=== PATIENT | male | born 1940 | race Caucasian/White ===

== ENCOUNTER → 2017-06-08 | Outpatient (CLI) | payer OTHER, MEDICARE ==
[2017-06-08 13:26] LABS: BASO % 1.1 %; BASO ABS # 0.05 K/uL (0-0.2); EOS % 3.1 %; HEMATOCRIT 37.7 % (42-52); IG% 0.2 %; LYMPH % 28.6 %; LYMPH ABS # 1.29 K/uL (1.2-3.4); MEAN CORPUSCULAR HEMOGLOBIN 20.2 pg (25-34); MEAN CORPUSCULAR HGB CONC 32.6 g/dl (32-36); MONO % 8.9 %; NEUT % 58.1 %; PLATELET COUNT 197 K/uL (130-400); RED BLOOD COUNT 6.08 M/uL (4.7-6.1); WHITE BLOOD COUNT 4.51 K/uL (4.8-10.8)
[2017-06-08 13:29] LABS: BLOOD UREA NITROGEN 24 mg/dl (7-18); BUN/CREATININE RATIO 27.8 (10-20); CALCIUM 8.7 mg/dl (8.5-10.1); CARBON DIOXIDE 31 mmol/L (21-32); CHLORIDE 104 mmol/L (98-107); CREATININE 0.85 mg/dl (0.60-1.40); GLUCOSE 98 mg/dl (70-99); POTASSIUM 4.2 mmol/L (3.5-5.1); SODIUM 139 mmol/L (136-145)
[2017-06-08 13:40] LABS: ALB/GLOB RATIO 1.1 (0.9-2); ALKALINE PHOSPHATASE 51 U/L (45-117); ALT/SGPT 43 U/L (12-78); AST/SGOT 24 U/L (15-37); CHOLESTEROL 132 mg/dl (0-200); CHOLESTEROL/HDL RATIO 1.8; HDL CHOLESTEROL 72 mg/dl; LDL CHOLESTEROL CALCULATED 50 mg/dl; THYROID STIMULATING HORMONE 0.951 uIu/ml (0.300-4.500); TRIGLYCERIDES 48 mg/dl (0-150); VERY LOW DENSITY LIPOPROT CALC 10 mg/dl
[2017-06-08 13:59] LABS: ANISOCYTOSIS PRESENT; COMPLETE YES; MICROCYTOSIS PRESENT; OVALOCYTES 1+; SCHISTOCYTES 1+; TOXIC GRANULATION 1+
== END | disposition home or self-care (01) ==
LOC: C.LABBC 09:17
PROVIDERS: ATTEND Internal Medicine
DX: Q28.2 Arteriovenous malformation of cerebral vessels (principal); I10 Essential (primary) hypertension; R40.0 Somnolence; N40.1 Benign prostatic hyperplasia with lower urinary tract symptoms; E78.5 Hyperlipidemia, unspecified; G60.9 Hereditary and idiopathic neuropathy, unspecified

== ENCOUNTER → 2017-06-12 | Outpatient (CLI) | payer OTHER, MEDICARE | END | disposition home or self-care (01) | LOC: C.RDSM 07:33 | PROVIDERS: ATTEND Orthopaedic Surgery | DX: M25.561 Pain in right knee (principal) ==

== ENCOUNTER 2017-07-27 10:35 | Inpatient (IN) | payer OTHER, MEDICARE ==
[2017-07-12 14:44] VITALS: BMI 31.0
--- NOTE | 2017-07-12 15:22 | PAT Medication Instructions ---
Service Date Jul 12, 2017. Current Home Medication List Aspirin (Aspirin Ec), 81 MG PO HS Atorvastatin (Lipitor), 10 MG PO HS Ciclopirox Olamine (Ciclopirox Olamine), 1 APPLN TOP UD PRN for FOOT FUNGUS Clobetasol Propionate (Clobetasol Propionate Cream 0.05%), 1 APPLN EXT UD PRN for SKIN RASHES Desipramine HCl (Desipramine HCl), 1 TAB PO QAM Gabapentin (Neurontin), 600 MG PO TID Lisinopril (Lisinopril), 1 TAB PO HS Magnesium Oxide (Magnesium), 1 CAP PO HS Methylphenidate (Ritalin), 2.5 MG PO BID Tamsulosin HCl (Tamsulosin HCl), 1 CAP PO QAM [Deglycycrrhizinated], Unknown Dose for GERD Medication Instructions For Your Scheduled Surgery - Hold the following medications 24 hours prior to surgery: Lisinopril (Lisinopril), 1 TAB PO HS Ciclopirox Olamine (Ciclopirox Olamine), 1 APPLN TOP UD PRN for FOOT FUNGUS Clobetasol Propionate (Clobetasol Propionate Cream 0.05%), 1 APPLN EXT UD PRN for SKIN RASHES - Hold the following medications the morning of surgery: Methylphenidate (Ritalin), 2.5 MG PO BID Tamsulosin HCl (Tamsulosin HCl), 1 CAP PO QAM [Deglycycrrhizinated], Unknown Dose for GERD - Take the following medications the morning of surgery with a sip of water: Gabapentin (Neurontin), 600 MG PO TID Desipramine HCl (Desipramine HCl), 1 TAB PO QAM - Take the following medications as scheduled the night before surgery: Methylphenidate (Ritalin), 2.5 MG PO BID Gabapentin (Neurontin), 600 MG PO TID Aspirin (Aspirin Ec), 81 MG PO HS Atorvastatin (Lipitor), 10 MG PO HS Magnesium Oxide (Magnesium), 1 CAP PO HS If you have any questions please call us at [phone] or [phone] or [phone]
--- NOTE | 2017-07-12 16:00 | DIAGNOSTIC IMAGING REPORT ---
CHEST 2 VIEWS ROUTINE CLINICAL HISTORY: PAT preoperative evaluation COMPARISON STUDY: No previous studies for comparison. FINDINGS: The bones soft tissues and hemidiaphragms are normal. The cardiomediastinal silhouette is normal. The lungs are clear. The pulmonary vasculature is normal. IMPRESSION: Negative chest. The above report was generated using voice recognition software. It may contain grammatical, syntax or spelling errors. Electronically signed by: Sebastian Hunt M.D. 07/12/2017 3:58 PM Dictated Date/Time: 07/12/2017 3:58 PM
[2017-07-12 16:10] LABS: BASO % 0.7 %; BASO ABS # 0.05 K/uL (0-0.2); EOS % 1.6 %; EOS ABS # 0.11 K/uL (0-0.5); HEMATOCRIT 36.3 % (42-52); HEMOGLOBIN 11.7 g/dL (14.0-18.0); IG# 0.01 K/uL (0.00-0.02); MEAN CELL VOLUME 62.2 fL (80-100); MEAN CORPUSCULAR HGB CONC 32.2 g/dl (32-36); MONO % 8.2 %; MONO ABS # 0.55 K/uL (0.11-0.59); NEUT % 65.4 %; NEUT ABS # 4.35 K/uL (1.4-6.5); PLATELET COUNT 177 K/uL (130-400); RED CELL DISTRIBUTION WIDTH CV 16.6 % (11.5-14.5); RED CELL DISTRIBUTION WIDTH SD 36.6 fL (36.4-46.3); WHITE BLOOD COUNT 6.67 K/uL (4.8-10.8)
[2017-07-12 16:40] LABS: PTT PATIENT 27.1 SECONDS (21.0-31.0)
--- NOTE | 2017-07-21 11:18 | HISTORY & PHYSICAL EXAMINATION ---
DATE OF ADMISSION: 07/27/2017 CHIEF COMPLAINT: Right knee pain. HISTORY OF PRESENT ILLNESS: A 76-year-old gentleman from [facility], who recently moved to this area about 2 years ago from [place], who presents for a surgical treatment of his right knee. He has got a long history of right knee pain and discomfort dating back to a high school injury. Never had any surgery. He has been through extensive conservative care, trying to avoid knee replacement surgeries. He has had multiple injections of both steroids and viscosupplementation, which have become less successful over time. He has tried acupuncture treatment and chiropractic treatments without much relief. He has been doing therapy as well. He has gotten several other opinions and now presents for a surgical treatment of his knee. It is global pain. It is increased with weightbearing. It is affecting his lifestyle. PAST MEDICAL HISTORY: Significant for: 1. Cerebral aneurysm, embolized. 2. Thalassemia minor. 3. Arthritis. 4. Peripheral autonomic neuropathy. PAST SURGICAL HISTORY: Includes: 1. Eye surgery. 2. Appendectomy. 3. Cerebral embolizations. 4. Rotator cuff repair. 5. Melanoma. ALLERGIES: IBUPROFEN. CURRENT MEDICATIONS: Include: 1. Unspecified med 25 mg a day. 2. Gabapentin 600 mg 3 times a day. 3. Methylphenidate 2.5 mg at breakfast and 2.5 mg at night. 4. Hydrochlorothiazide 12.5 mg a day. 5. Lisinopril 10 mg a day. 6. Atorvastatin 10 mg a day. 7. Tamsulosin 0.4 mg a day. 8. Clobetasol cream. 9. Ciclopirox cream. 10. Curcumin. 11. Potassium. 12. Magnesium. 13. Aspirin 81 mg. 14. Deglycyrrhizinated licorice 400 mg before meals. SOCIAL HISTORY: This is a 76-year-old male. He recently moved here from [place] about 2 years ago. He is . Two children. Does not drink. FAMILY HISTORY: Significant for heart disease. REVIEW OF SYSTEMS: Significant for history of aneurysm in the past. He does take aspirin without difficulties. Denies any chest pain, no shortness breath. No history of DVT or PE. No known bleeding problems. PHYSICAL EXAMINATION: GENERAL: Physical examination reveals a healthy, pleasant, middle-aged male. He looks to be in good health. HEENT: Benign. NECK: Supple. No lymphadenopathy. LUNGS: Clear to auscultation. HEART: Regular rate and rhythm. ABDOMEN: Soft, nontender and nondistended. EXTREMITIES: Grossly neurovascularly intact except as follows. Examination of the right knee reveals the patient walks with a slight bit of a limp. He has got a valgus alignment to his knee. When he weight bears, his knee goes into further valgus. His range of motion is about 5 degrees short of full extension and 120 degrees of flexion. There is no instability. Small knee effusion. X-RAYS: X-rays of the right knee reveal advanced lateral compartment DJD. He has got complete loss of his lateral joint space. He has got subchondral sclerosis. The patella was well centered within the trochlea. ASSESSMENT: A 76-year-old male with advanced right knee degenerative joint disease relating to a high school injury years ago. He has failed all conservative treatment and would like to his right knee replaced. PLAN: We will take him to the operating room and do a right total knee replacement. The risks and benefits of this procedure were explained to the patient including but not limited to DVT, PE, , infection, neurological injury, vascular injury, bleeding problems, pain, limited range of motion, stiffness, failure to relieve his symptoms, incomplete relief of symptoms, need for further surgery in the future, fracture, leg length inequality, nerve palsy, etc. The patient understands and desires to proceed. Informed consent was obtained. He does have the history of aneurysm in the past, but does take aspirin. We will use aspirin for DVT prophylaxis, probably 81 mg 3 times a day. We did talk to him about holding his lisinopril in the morning of surgery. Apparently, he has some degree of ALLERGIC REACTION TO NICKEL. We will use the Licona [employer] Nephew zirconium knee to avoid any potential allergy issues. He should be able to be discharged home using [facility] home health program. XIN
[~2017-07-27] VITALS: Ht 170.2 cm; Wt 90.3 kg
[2017-07-27] VITALS (9 sets, daily range): BP systolic 89–149; BP diastolic 46–76; PULSE 60–84; TEMP 36.4–36.7; O2SAT 93–98; Ht 170.2 cm; Wt 90.3 kg
[~2017-07-27 10:35] MED LIST: ACETAMINOPHEN 500 MG TAB PO SCH; ASPI81TA28 PO; ATOR10TA82 PO; BUPIVACAINE 0.25% 30 ML VIAL ONE; BUPIVACAINE 0.5 % 5 MG/1 ML PF 10ML VIAL ONE; CEFAZOLIN 2000MG IV PUSH 10 ML IV SCH; CLBCRM30 EXT; DSP25 PO; FAMOTIDINE 20 MG TAB PO SCH; FLM4 PO; GABA-113 PO; GABAPENTIN 300 MG CAP PO SCH; LACTATED RINGER'S 1000ML 1,000 ML IV SCH; LACTATED RINGER'S 1000ML 500 ML IV SCH; LISI-461 PO; MAGN1CAP4 PO; METH5TAB4 PO; METOCLOPRAMIDE HCL 10 MG TAB PO SCH; TRANEXAMIC ACID INJ 1,000 MG in SYRINGE 0 ML IV SCH; [UNRECOGNIZED DRUG - CODE] TOP; [UNRECOGNIZED DRUG - OTHER]
--- NOTE | 2017-07-27 11:30 | History & Physical Bridge Note ---
H&P Re-Evaluation Bridge Note: I have examined the patient, reviewed the History & Physical and in the interval since the performance of the History & Physical I have noted the following changes of clinical significance: No changes noted
[2017-07-27] MEDS ORDERED: LIDOCAINE HCL 2% 2 ML VIAL (20MG/ML) ONE (12:09)
[2017-07-27] MEDS ORDERED: PROPOFOL IV EMULSION 10 MG/ML 20 ML VIAL IV ONE (12:09)
[2017-07-27] MEDS ORDERED: MIDAZOLAM HCL 1 MG/ML 2ML VIAL ONE (12:10)
[2017-07-27] MEDS ORDERED: FENTANYL CITRATE INJ 50 MCG/1 ML 2 ML VIAL ONE (12:10)
[2017-07-27] MEDS ORDERED: BUPIVACAINE/EPINEPHRINE 0.25% 1:200,000 30 ML VIAL ONE (13:15)
[2017-07-27] MEDS ORDERED: BUPIVACAINE LIPOSOME 1/3% 266 MG/20 ML VIAL INFIL ONE (13:15)
[2017-07-27] MEDS ORDERED: SODIUM CHLORIDE 0.9% PF 50 ML VIAL ONE (13:15)
[2017-07-27] MEDS ORDERED: BACITRACIN 50000 UNIT VIAL ONE (13:15)
[2017-07-27] MEDS ORDERED: ONDANSETRON INJ 2 MG/ML 2 ML VIAL ONE (13:36)
[2017-07-27] MEDS ORDERED: ATROPINE SULFATE 0.1 MG/ML 5ML SYR IV PRN (13:45)
[2017-07-27] MEDS ORDERED: EpHEDrine SULFATE INJ 50 MG/ML AMP IV PRN (13:45)
[2017-07-27] MEDS ORDERED: EpHEDrine SULFATE INJ 50 MG/ML AMP ONE (13:52)
[2017-07-27] MEDS ORDERED: PHENYLEPHRINE HCL INJ 10 MG/ML VIAL ONE (14:06)
[2017-07-27] MEDS: BUPIVACAINE LIPOSOME 266 MG, BUPIVACAINE/EPINEPHRINE INJ 50 ML, SODIUM CHLORIDE 0.9% PF... INFIL SCH ×6 (14:35→15:17)
--- NOTE | 2017-07-27 15:25 | [facility] Post Operative Brief Note ---
Immediate Operative Summary Operative Date Jul 27, 2017. Pre-Operative Diagnosis Right Knee Degenerative Joint Disease Post-Operative Diagnosis Same as preop Procedure(s) Performed Right Total Knee Arthroplasty Surgeon Dr. Denis Subacute Nurse Surgeon(s) William Bee PA-C Estimated Blood Loss 50CC Findings Consistent with Post-Op Diagnosis Fluids (cc crystalloids) 1200 cc Specimens A. Right Knee Bone and Tissue Drains None Anesthesia Type MAC Spinal Regional Complication(s) none Disposition Accompanied Pt To Recover: no Disposition: Recovery Room / PACU
[2017-07-27] MEDS ORDERED: ONDANSETRON INJ 2 MG/ML 2 ML VIAL IV PRN (15:45)
[2017-07-27] MEDS ORDERED: MAGNESIUM HYDROXIDE SUSP 30 ML UDC PO PRN (15:45)
[2017-07-27] MEDS ORDERED: BISACODYL 10 MG SUPP PR PRN (15:45)
[2017-07-27] MEDS ORDERED: METOCLOPRAMIDE HCL INJ 5 MG/ML 2 ML VIAL IV PRN (15:45)
[2017-07-27] MEDS ORDERED: ALUMINUM/MAGNESIUM/SIMETH (MAALOX MAX) 30 ML UDC PO PRN (15:45)
[2017-07-27] MEDS ORDERED: SILVER SULFADIAZINE 1% CR 50 GM JAR EXT PRN (15:45)
[2017-07-27] MEDS ORDERED: ZOLPIDEM TARTRATE 5 MG TAB PO PRN (15:45)
[2017-07-27] MEDS ORDERED: TAMSULOSIN HCL 0.4 MG CAP PO PRN (15:45)
--- NOTE | 2017-07-27 15:58 | Anesthesiology Progress Note ---
Anesthesia Post Op Note Date & Time Jul 27, 2017 at 15:58 Vital Signs Pain Intensity: 0 Vital Signs Past 12 Hours Date Time Temp Pulse Resp B/P (MAP) Pulse Ox O2 Delivery O2 Flow Rate FiO2 07/27/17 15:50 84 18 106/53 94 Nasal Cannula 2 07/27/17 15:40 80 18 113/54 94 Nasal Cannula 2 07/27/17 15:30 36.7 87 12 102/53 96 Nasal Cannula 2 07/27/17 10:59 36.5 78 16 149/70 98 Room Air Notes Mental Status: alert / awake / arousable, participated in evaluation Pt Amnestic to Procedure: Yes Nausea / Vomiting: adequately controlled Pain: adequately controlled Airway Patency, RR, SpO2: stable & adequate BP & HR: stable & adequate Hydration State: stable & adequate Anesthetic Complications: no major complications apparent
--- NOTE | 2017-07-27 16:02 | DIAGNOSTIC IMAGING REPORT ---
R KNEE 1 OR 2 VIEWS ROUTINE CLINICAL HISTORY: Postoperative evaluation. COMPARISON: Right knee radiographs July 18 2017. FINDINGS: Alignment of the total right knee arthroplasty is anatomic. There is no fracture or unexpected radiopaque foreign body. Skin ronni are present. IMPRESSION: Expected findings following total right knee arthroplasty. Electronically signed by: Jt Duckworth M.D. 07/27/2017 4:01 PM Dictated Date/Time: 07/27/2017 4:00 PM
[2017-07-27] MEDS: TRAMADOL HCL 50 MG TAB PO PRN ×3 (17:52→23:23)
[2017-07-27] MEDS: D5W AND 1/2NSS + 20MEQ KCL 1,000 ML IV SCH (17:54)
[2017-07-27] MEDS: FERROUS GLUCONATE 324 MG TAB PO SCH (17:54)
[2017-07-27] MEDS: KETOROLAC TROMETHAMINE 15 MG/ML VIAL IV. SCH ×2 (17:54→23:23)
[2017-07-27] MEDS: HYDROmorphone INJ 0.5 MG/0.5 ML SYR IV PRN ×2 (20:06→22:14)
[2017-07-27] MEDS ORDERED: MAGNESIUM OXIDE 400 MG TAB PO SCH (21:00)
[2017-07-27] MEDS: METHYLPHENIDATE HCL 5 MG TAB PO SCH (21:00)
[2017-07-27] MEDS: CEFAZOLIN IV 2,000 MG in SYRINGE 5 ML IV SCH (21:41)
[2017-07-27] MEDS: DOCUSATE SODIUM 100 MG CAP PO SCH (21:41)
[2017-07-27] MEDS: ASPIRIN 325 MG ECTAB PO SCH (21:41)
[2017-07-27] MEDS: ATORVASTATIN 10 MG TAB PO SCH (21:43)
[2017-07-27] MEDS: MAGNESIUM OXIDE 400 MG TAB PO SCH (21:44)
[2017-07-27] MEDS: GABAPENTIN 600 MG TAB PO SCH (21:45)
[2017-07-27] MEDS: LISINOPRIL 10 MG TAB PO SCH (21:46)
[2017-07-27] MEDS: SENNA 8.6 MG TAB PO SCH (21:46)
[2017-07-27] MEDS: ACETAMINOPHEN 500 MG TAB PO SCH (21:50)
[2017-07-27] MEDS ORDERED: TRANEXAMIC ACID INJ 1,000 MG in SODIUM CHLORIDE 0.9% 100ML 100 ML IV SCH (22:00)
[2017-07-28] VITALS (7 sets, daily range): BP systolic 80–124; BP diastolic 52–67; PULSE 68–93; TEMP 36.8–37.3; O2SAT 91–97
[2017-07-28] MEDS: D5W AND 1/2NSS + 20MEQ KCL 1,000 ML IV SCH ×2 (01:47→08:59)
[2017-07-28] MEDS: TRAMADOL HCL 50 MG TAB PO PRN ×2 (03:56→08:59)
[2017-07-28] MEDS: CEFAZOLIN IV 2,000 MG in SYRINGE 5 ML IV SCH (05:41)
[2017-07-28] MEDS: ACETAMINOPHEN 500 MG TAB PO SCH ×3 (05:42→20:52)
[2017-07-28] MEDS: KETOROLAC TROMETHAMINE 15 MG/ML VIAL IV. SCH ×4 (05:42→23:41)
[2017-07-28 06:11] LABS: MEAN CORPUSCULAR HGB CONC 31.7 g/dl (32-36)
[2017-07-28 06:21] LABS: HEMATOCRIT 28.4 % (42-52); MEAN CELL VOLUME 62.4 fL (80-100); MEAN CORPUSCULAR HEMOGLOBIN 19.8 pg (25-34); RED CELL DISTRIBUTION WIDTH CV 16.4 % (11.5-14.5); RED CELL DISTRIBUTION WIDTH SD 36.7 fL (36.4-46.3); WHITE BLOOD COUNT 8.15 K/uL (4.8-10.8)
[2017-07-28 06:39] LABS: CALCIUM 7.7 mg/dl (8.5-10.1); CREATININE 0.93 mg/dl (0.60-1.40); POTASSIUM 3.8 mmol/L (3.5-5.1)
[2017-07-28 06:56] LABS: PLATELET COUNT 133 K/uL (130-400)
--- NOTE | 2017-07-28 07:04 | PROGRESS NOTE ---
DATE: 07/28/2017 SUBJECTIVE: A 76-year-old gentleman postop day 1 from right knee replacement. Pretty rough night but feeling better this morning. No chest pain or shortness of breath. Not feeling dizzy or lightheaded. It has mostly just been a pain issue. OBJECTIVE: VITAL SIGNS: Temperature 37.2. Vital signs stable. GENERAL: Reveals a pleasant, middle-aged male. He is sitting up in bed and looks reasonably comfortable this morning. EXTREMITIES: Examination of the right leg reveals the leg to be well aligned. Dressing is clean, dry, and intact. He can dorsiflex and plantarflex his foot appropriately. He is neurologically intact. LABORATORY DATA: Hemoglobin 9.0. Hematocrit 28.4. Electrolytes are pending. ASSESSMENT: A 76-year-old gentleman postop day 1 from right knee replacement, doing pretty well. Does not really do well with pain medicines and will have to adjust these to get optimal program. He seems to be doing okay now. PLAN: 1. DVT prophylaxis including thigh high TEDs, SCDs, and aspirin twice a day. 2. PT, OT. Weightbearing as tolerated. Right total knee protocol. 3. Pain control. We are going to continue Toradol and Tylenol. We will use tramadol but may need to be more aggressive depending on his pain. 4. Disposition: Plan to discharge to home with some home health once adequately recovered.
[2017-07-28] MEDS: DOCUSATE SODIUM 100 MG CAP PO SCH ×2 (08:52→20:49)
[2017-07-28] MEDS: ASPIRIN 325 MG ECTAB PO SCH ×2 (08:52→20:50)
[2017-07-28] MEDS: GABAPENTIN 600 MG TAB PO SCH ×3 (08:52→20:49)
[2017-07-28] MEDS: FERROUS GLUCONATE 324 MG TAB PO SCH ×3 (08:54→18:30)
[2017-07-28] MEDS: DESIPRAMINE HCL 25 MG TAB PO SCH (08:55)
[2017-07-28] MEDS: PANTOprazole SOD 40 MG TAB PO SCH (08:58)
[2017-07-28] MEDS: MULTIVITAMIN TAB PO SCH (08:58)
[2017-07-28] MEDS: TAMSULOSIN HCL 0.4 MG CAP PO SCH (08:58)
[2017-07-28] MEDS: METHYLPHENIDATE HCL 5 MG TAB PO SCH (09:07)
[2017-07-28] MEDS ORDERED: NURSING VERBAL MED ORDER ONE (14:00)
[2017-07-28] MEDS: ATORVASTATIN 10 MG TAB PO SCH (20:50)
[2017-07-28] MEDS: MAGNESIUM OXIDE 400 MG TAB PO SCH (20:50)
[2017-07-28] MEDS: LISINOPRIL 10 MG TAB PO SCH (20:51)
[2017-07-28] MEDS: SENNA 8.6 MG TAB PO SCH (20:51)
[2017-07-28] MEDS ORDERED: ASPEC325 PO (21:49)
[2017-07-28] MEDS ORDERED: ULT50X PO (21:49)
[2017-07-28] MEDS ORDERED: FRRG PO (21:51)
--- NOTE | 2017-07-28 22:40 | Discharge Instructions ---
Discharge Instructions Date of Service Jul 28, 2017. Admission Reason for Admission: Right Knee Degenerative Joint Disease Discharge Discharge Diagnosis / Problem: Right Knee Replacement Discharge Goals Goal(s): Decrease discomfort, Improve function, Increase independence, Improve disease control, Therapeutic intervention Activity Recommendations Activity Limitations: per Instructions/Follow-up section Weightbearing Status: Right weightbearing . Instructions / Follow-Up Instructions / Follow-Up ACTIVITY RECOMMENDATIONS: Physical Therapy: * You will go to physical therapy three times each week for four to six weeks after your surgery in order to regain your knee range of motion and to retrain your knee to work properly. * It is just as important to make sure you are getting your knee perfectly straight as it is to regain your knee bend. * Taking a pain pill an hour before therapy can help you have a more productive and comfortable therapy session. Home Exercise: * You were shown a series of exercises (heel props, heel slides, etc.) in the hospital. Do these exercises three to four times each day including the exercises you were shown in physical therapy. Walking: * Get up and walk several times each day. For the first four weeks, try not to stand or walk for more than one hour at a time. If you do stand or walk for more than one hour, you will not hurt anything, but your knee and leg will likely swell. * As you feel comfortable, you may change from the walker or crutches to a cane and then to independent walking. MEDICATIONS: New Medicine: * You will likely be taking one or more of these medications: 1. Tramadol - A quick and shorter-acting pain medication. Take one to two tablets every four to six hours to lessen your pain. 2. Iron Sulfate - Take two times each day for the month after surgery to help you replace the blood lost during surgery. 3. Aspirin - Thins your blood to lessen the chance of forming a blood clot. * The most common side effects of pain medicine and iron are nausea and constipation. If nausea or constipation is too much of a problem or if you have any questions about your new medicines or doses, call [facility] at [phone]. We will try to help you manage these issues. VERY IMPORTANT TO READ AND REVIEW" Pain: * The immediate post-operative period after knee replacement surgery is often quite painful. * You are given a prescription for pain medicine. You should take it, as directed, when you need it, especially before physical therapy and before going to bed. Pain that interferes with sleep is very common and can last several months. * You will likely need pain medicine for the first four to six weeks. It will not stop all of the pain. The pain will lessen and as you feel better, you may change to milder pain medicine such as Tylenol. * The most common side effects of pain medicine are nausea and constipation, so don't take more than you need. SPECIAL CARE INSTRUCTIONS: TEDs/Elastic Stockings: * The white elastic stockings help limit swelling and prevent blood clots from forming in your legs. The more you wear them, the more they work. * Wear them for six weeks after knee replacement surgery and four weeks after partial knee replacement. Prevention of Infection: * Take antibiotics one hour before any dental cleaning, dental work, urological procedure, gastrointestinal procedure or any invasive surgery in order to prevent your new joint from getting infected. * You may get the antibiotics from the doctor performing the procedure or you may call our office at before and we will call in a prescription to the pharmacy of your choice. Things to Watch For: * Drainage from the incision site that occurs more than one week after your surgery. * Severely increased knee/leg pain or swelling. * Increased redness at the incision site. * Fever above 102 degrees Fahrenheit. * Unusual chest pain or shortness of breath. * Unusual pain or burning with urination. Call [facility] at with any of the above problems or if you have any questions about your medicines or recovery. FOLLOW UP VISIT: Make an appointment to see your doctor for approximately two weeks after surgery for a progress check and staple removal by calling the office at . Current Hospital Diet Patient's current hospital diet: Regular Diet Discharge Diet Recommended Diet: Regular Diet Procedures Procedures Performed: Right Total Knee Arthroplasty Pending Studies Studies pending at discharge: no Laboratory Results Lipid Panel Test 06/08/17 09:21 Range/Units Triglycerides Level 48 0-150 mg/dl Cholesterol Level 132 0-200 mg/dl HDL Cholesterol 72 mg/dl Cholesterol/HDL Ratio 1.8 LDL Cholesterol, Calculated 50 mg/dl Medical Emergencies . Who to Call and When: Medical Emergencies: If at any time you feel your situation is an emergency, please call 911 immediately. . Non-Emergent Contact Non-Emergency issues call your: Surgeon . "Provider Documentation" section prepared by Asif Denis. . VTE Core Measure Inpt VTE Proph given/why not?: Other Anticoagulation, T.E.D. Stockings, SCD's
[2017-07-29] MEDS: KETOROLAC TROMETHAMINE 15 MG/ML VIAL IV. SCH (05:39)
[2017-07-29] MEDS: ACETAMINOPHEN 500 MG TAB PO SCH (05:40)
[2017-07-29 06:05] VITALS: BP 114/74; PULSE 79; TEMP 36.5; O2SAT 93
[2017-07-29] MEDS: FERROUS GLUCONATE 324 MG TAB PO SCH (07:25)
[2017-07-29] MEDS: ASPIRIN 325 MG ECTAB PO SCH (07:25)
[2017-07-29] MEDS: GABAPENTIN 600 MG TAB PO SCH (07:26)
[2017-07-29] MEDS: TAMSULOSIN HCL 0.4 MG CAP PO SCH (07:26)
[2017-07-29] MEDS: DESIPRAMINE HCL 25 MG TAB PO SCH (07:26)
[2017-07-29] MEDS: DOCUSATE SODIUM 100 MG CAP PO SCH (07:26)
[2017-07-29] MEDS: PANTOprazole SOD 40 MG TAB PO SCH (07:26)
[2017-07-29] MEDS: MULTIVITAMIN TAB PO SCH (07:26)
[2017-07-29] MEDS: TRAMADOL HCL 50 MG TAB PO PRN (07:39)
--- NOTE | 2017-07-29 08:06 | PROGRESS NOTE ---
DATE: 07/29/2017 SUBJECTIVE: This is a 76-year-old gentleman postop day 2 from right knee replacement. He is doing better. Pain is better today. No chest pain or shortness of breath. Not feeling dizzy or lightheaded. OBJECTIVE: VITAL SIGNS: Temperature 36.5. Vital signs stable. GENERAL: Reveals a pleasant, middle-aged male. He is sitting up in bed and eating breakfast. Looks comfortable. EXTREMITIES: Examination of the right leg reveals it to be well aligned. Dressing is clean, dry and intact. His calf is soft and supple. He is neurologically intact. ASSESSMENT: A 76-year-old gentleman postop day 2 from a right knee replacement. He is doing pretty well. Pain is improved today. PLAN: 1. DVT prophylaxis including thigh-high TEDs, SCDs, and aspirin twice a day. 2. PT and OT. Weight bear as tolerated. Right total knee protocol. 3. Pain control. Doing well with current pain regimen. 4. Anemia. Currently, asymptomatic. We will continue on supplementation. 5. Disposition: Plan to discharge to home with some home health later today.
[2017-07-29] MEDS ORDERED: METHYLPHENIDATE HCL 5 MG TAB PO SCH (09:00)
[2017-07-29 09:33] VITALS: BP 114/74; PULSE 79; TEMP 36.5; O2SAT 93
--- NOTE | 2017-07-30 07:58 | OPERATIVE REPORT ---
DATE OF OPERATION: 07/27/2017 SURGEON: Asif Denis MD SENIOR [employer]SE ARCHITECT: CHRISS Beltran PREOPERATIVE DIAGNOSIS: Right knee degenerative joint disease. POSTOPERATIVE DIAGNOSIS: Same. PROCEDURE PERFORMED: Right cemented posterior stabilized total knee arthroplasty. COMPLICATIONS: None. ESTIMATED BLOOD LOSS: 50 mL. FLUID REPLACEMENT: 1200 mL crystalloid fluid replacement. TOURNIQUET TIME: 67 minutes at 300 mmHg. ANESTHESIA: Spinal with adductor canal block. DRAINS: None. SPECIMENS: Left knee sent for pathology. OPERATIVE INDICATIONS: The patient is a 76-year-old gentleman who has had a long history of right knee pain and discomfort. He describes it has just gotten worse over time. He has been through extensive conservative treatment which has not helped recently. X-rays showed advanced lateral compartment DJD with valgus deformity to his knee. He failed conservative treatment and elected to proceed with surgical management. THE PATIENT DOES HAVE A REPORTED NICKEL ALLERGY. Therefore, we used the L[employer]a [employer] Nephew zirconium total knee arthroplasty. OPERATIVE FINDINGS: Operative findings revealed advanced right knee DJD. 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 He had moderate degenerative changes elsewhere. He had a large knee joint effusion and large Barroso cyst posteriorly. OPERATIVE IMPLANTS: Operative implants consisted of: 1. Licona [employer] Nephew Journey II zirconium size 6 posterior stabilized femoral component. 2. Licona [employer] Nephew Journey size 6 tibial tray. 3. An 11 mm posterior stabilized polyethylene insert. 4. A 35 x 9 all poly patella. OPERATIVE PROCEDURE: The patient was taken to the operating room, identified and placed on the operating table in supine position. All contact areas were appropriately padded. IV antibiotics were provided by anesthesia team. A spinal anesthetic and adductor canal block had been provided in the holding area. Hyman catheter was placed in sterile fashion. Right thigh tourniquet was then placed and the lower extremity was then prepped and draped in the usual sterile fashion. The right leg was elevated and exsanguinated with Esmarch and tourniquet was placed at 300 mmHg. An anterior approach to the right knee was then performed through a longitudinal incision, centered over the patella. Sharp dissection was carried out through the subcutaneous tissues down to the level of the extensor mechanism. A medial parapatellar arthrotomy incision was made. Some subperiosteal dissection was carried out medially. The fat pad was resected from beneath the patellar tendon. The lateral patellofemoral ligament was released. The patella was everted and knee was flexed. The osteophytes were taken off the distal femur. The ACL and PCL were then released from the distal femur and the tibia subluxated anteriorly. The external tibial alignment jig was then placed in the anterior face of the tibia and adjusted 8 mm medially. Proximal tibial cut was made to remove about 3-4 mm of bone from the medial side just below the lateral side tibial cut. The tibia was sized to a size 6. I tried to maximize coverage while not allowing overhang posterolaterally. Attention was then drawn to the femur. The distal femur was entered with a sharp drill bit. Intramedullary canal was suctioned. A right 5 degree valgus cutting guide plate was placed. Distal femoral cutting block was pinned in place. Distal femoral cut was made to take an additional 2 mm of bone off the distal femur. The knee was brought out into extension and I equalized the extension gap by releasing the IT band in a piecrust fashion and a little bit of posterolateral capsule, taking great care to protect the peroneal nerve at all times. The knee was then flexed. The femur was then sized to just slightly to size 6, we did downsize this slightly. The AP cutting block was pinned parallel to the epicondylar axis, which was 5 degrees of external rotation. The anterior cut, anterior cord, posterior cut, posterior chamfer, and anterior chamfer cuts were made. The knee was flexed. The remnants of the medial and lateral menisci and the osteophytes were taken off the posterior aspect of the femur. A trial femoral component was placed. The cutting guide for the intercondylar notch was placed and the intercondylar notch area was removed. The trochlea was placed. The tibia was then subluxated anteriorly and the tibial tray was pinned in maximum external rotation. The drill and stem punch were used to create defect in the proximal tibia for the tibial tray. The knee was then trialed and an 11 mm insert fit most appropriately. Attention was then drawn to the patella. The patella was cleaned of all soft tissues. Patellar thickness measured 23 mm and the thickness was cut down to 14, it was sized to a size 35 patella. Lug holes were drilled for a 35 patella. Lateral osteophyte was removed. Patellar button was placed. Knee was taken through range of motion and the patella tracked nicely with no thumbs test. Attention was then drawn toward placement of the permanent components. All trial components were removed. A bone plug was placed in the distal femur to limit blood loss. A double batch of Palacos G cement was mixed. A Licona [employer] Nephew Journey II size 6 posterior stabilized femoral component, size 6 tibial tray, 11 mm posterior stabilized polyethylene insert, and a 35 x 9 all poly patella were then cemented in place. The knee was then brought out into full extension until cement hardened. A final cement check was then performed. Pericapsular tissues were injected with a total of 100 mL of a combination of 20 mL of Exparel, 30 mL of normal saline, and 50 mL of 0.25% Marcaine with epinephrine. The tourniquet was then let down for a tourniquet time of 67 minutes. Hemostasis was assured with use of electrocautery. The wound was once again irrigated. Extensor mechanism was then closed with a combination of #1 PDS suture and #1 Vicryl suture in a [id number] fashion. Extensor mechanism was checked and found to be intact. Subcutaneous tissues were then closed with 2-0 Dexon suture in a buried interrupted fashion. Skin was closed with skin ronni. Leg was then cleaned and dried and a sterile dressing with Xeroform, 4 x 4, sterile cast padding and Dalton bandage were applied. The patient was then transferred to the recovery room in stable condition. The patient tolerated the procedure well and no complications. All needle and sponge counts were correct at the end of the operation. I attest to the content of the Intraoperative Record and any orders documented therein. Any exception s are noted below.
== END 2017-07-29 10:01 | disposition home health service (06) | DRG 470 ==
LOC: C.ACU 10:35 → C.3E 11:00 → ENRESERV 15:54
PROVIDERS: ADMIT Orthopaedic Surgery Sports Medicine; ATTEND Orthopaedic Surgery Sports Medicine
PROC: 0SRC0J9 Replacement of Right Knee Joint with Synthetic Substitute, Cemented, Open Approach (ICD-10-PCS; principal; 2017-07-27 12:55)
DX: M17.11 Unilateral primary osteoarthritis, right knee (principal); G90.9 Disorder of the autonomic nervous system, unspecified; Z79.899 Other long term (current) drug therapy; Z79.82 Long term (current) use of aspirin

== ENCOUNTER 2022-03-21 07:47 | Observation (INO) ==
[2022-03-21] MEDS ORDERED: SODIUM CHLORIDE 0.9% 1000ML 1,000 ML IV SCH (08:30)
[2022-03-21 09:11] LABS: INR 1.3 (0.9-1.1); Prothrombin Time 13.5 Seconds (9.0-12.0)
--- NOTE | 2022-03-21 09:19 | XRay Report ---
XR chest 1V portable CLINICAL HISTORY: hypotension, new onset atrial fibrillation COMPARISON STUDY: Chest radiograph July 12, 2017. FINDINGS: Lung volumes are normal. Lungs are clear. There is no pneumothorax or pleural effusion. Car diac size is at the upper limits of normal. Mediastinal contours are normal. There is no evidence for pulmonary edema. IMPRESSION: No acute cardiopulmonary findings. ACT 112: Negative or not required by law. Electronically signed by: Jt Duckworth M.D. 03/21/2022 9:18 AM
[2022-03-21 09:21] LABS: Albumin Globulin Ratio 1.5 (0.9-2); Albumin Level 2.6 gm/dl (3.4-5.0); BUN Creatinine Ratio 30.5 (10-20); Bilirubin,Total 0.6 mg/dl (0.2-1.0); Calcium 6.3 mg/dl (8.5-10.1); Creatinine Clr Calc Pharmacy 102.3 ml/min; Est GFR (Non-African American) 94.9 ml/min; Globulin 1.7 gm/dl (2.5-4.0); Magnesium 1.4 mg/dl (1.7-2.4); Potassium 2.9 mmol/L (3.5-5.1); Total Protein 4.3 gm/dl (6.0-8.3)
[2022-03-21 09:25] LABS: Troponin I High Sensitivity 16.5 pg/ml (0-20)
[2022-03-21 09:28] LABS: Hemoglobin 9.5 g/dl (14.0-18.0); Mean Corpuscular Hemoglobin 20.3 pg (25.0-34.0); Mean Corpuscular Hgb Conc 30.6 g/dL (32.0-36.0); Mean Corpuscular Volume 66.2 fL (80.0-100.0); Mean Platelet Volume 11.3 fL (9.4-12.4); Platelet Count 103 K/uL (130-400); RDW Standard Deviation 37.2 fL (36.4-46.3); Red Blood Count 4.68 M/uL (4.63-6.08); White Blood Count 3.15 K/ul (4.8-10.8)
[2022-03-21 09:31] LABS: Basophils # (auto) 0.04 K/uL (0-0.2); Basophils % (auto) 1.3 %; Eosinophils # (auto) 0.07 K/uL (0-0.50); Eosinophils % (auto) 2.2 %; Hypochromasia Present; Lymphocytes # (auto) 0.61 K/uL (1.2-3.4); Lymphocytes % (auto) 19.4 %; Microcytosis Present; Monocytes # (auto) 0.23 K/uL (0.24-0.82); Monocytes % (auto) 7.3 %; Neutrophils % (auto) 69.8 %; Polychromasia 1+
[2022-03-21 10:46] LABS: Appearance Urine Clear (Clear); Bacteria Urine Automated Negative (Negative); Bilirubin Urine Negative (Negative); Blood Urine Negative (Negative); Color Urine Yellow; Glucose Urine UA Negative (Negative); Ketones Urine Trace (Negative); Leukocyte Esterase Urine Trace (Negative); Nitrite Urine Negative (Negative); Protein Urine Negative (Negative); RBC Urine Automated 0-4 /hpf (0-4); Specific Gravity Urine 1.011 (1.000-1.030); Urobilinogen Urine Negative (Negative)
[2022-03-21] MEDS ORDERED: MAGNESIUM SULFATE / D5W 1 GM/100 ML BAG IV STA (11:30)
[2022-03-21] MEDS: POTASSIUM CHLORIDE / WTR 10 MEQ/100 ML PLCT IV SCH ×2 (12:52→14:15)
--- NOTE | 2022-03-21 13:42 | Cardiology Consultation ---
Date of Consultation March 21, 2022 Assessment & Plan (1) New onset atrial fibrillation: (2) Nonischemic cardiomyopathy: (3) Non-occlusive coronary artery disease: Plan Patient is an 81-year-old male with prior nonischemic cardiomyopathy with return to normal LV function on guideline directed medical regimen including metoprolol succinate low-dose Entresto and atorvastatin who presents now with sudden onset acute dizziness and presyncope. Symptoms have resolved however he is still remains borderline hypotensive. Newly observed atrial fibrillation found on EKG though with bradycardic to normal ventricular response. No tachyarrhythmia Laboratory studies demonstrate significant metabolic derangement including hypokalemia hypomagnesemia. CBC demonstrates chronic thalassemia changes however with declining hemoglobin and platelet count I discussed atrial fibrillation in detail with patient including management and treatment. No overt tachyarrhythmias but bradycardia arrhythmias are a concern Impression/plan: 1. New onset atrial fibrillation with relatively bradycardic response. Patient was anticipated to have ultimately lapsed into this rhythm given atrial enlargement in past. Question tachybradycardia syndrome. Significant metabolic derangements noted including hypokalemia, hypomagnesemia We will continue low-dose Toprol 12.5 mg every morning as ordered. Maintain telemetry given symptomatic complaints of presyncope Supplement potassium and magnesium with repeat laboratory studies ordered today Optimally would anticoagulate with heparin until significant bradycardia arrhythmias excluded then initiate full anticoagulation long-term with DOAC. We will repeat CBC given declining hemoglobin and platelet count before initiating anticoagulation We will keep n.p.o. after midnight tonight 2. Hypotension and presyncope. Question secondary to arrhythmias versus alternate source. Echocardiogram will be repeated but past studies have demonstrated return to normal LV systolic function. No acute findings suggest ischemia and known mild coronary atherosclerosis by prior cardiac catheterization 3. Decreased hemoglobin and platelet count, repeat CBC to be ordered History of Present Illness Reason for Consultation: New onset atrial fibrillation History of Present Illness Patient is an 81-year-old male with underlying cardiac issues which include but discussion with patient and and review of records 1. Dilated nonischemic cardiomyopathy with moderate left ventricular systolic dysfunction, EF previously 35% with return to normal LV function 2. Mitral regurgitation, nonrheumatic 3. Nonobstructive coronary artery disease via October 2018 diagnostic cardiac catheterization 4. Remote closure of a cerebral AVM circa 1988 to 1990 5. Hypertension 6. Dyslipidemia 7. GERD 8. Gastroparesis 9. Chronic anemia, thalassemia minor 10. Idiopathic peripheral neuropathy 11. Chronic right bundle branch block Patient presents now noting preparing to go for his usual daily 3 mile walk and suddenly developing symptoms of lightheadedness and dizziness. Symptoms initially resolved then returned. Patient checked blood pressure and found it to be significantly low with systolic blood pressures in the 60s. He was not aware of pulse. He remained symptomatic and pale and and he proceeded to the emergency room Currently asymptomatic with systolic blood pressures in the 90s but newly observed atrial fibrillation rates 50s and 60s. He denies any chest pains, tachypalpitations. No recent fevers or infections. No bleeding difficulties. Appetite and weight have been generally stable. Notes no diarrhea or loose stools. No changes in medications recently. Taking medications as prescribed no sleep disturbance. Usual good exercise tolerance with vigorous walk daily Allergies Allergy/AdvReac Type Severity Reaction Status Date / Time ibuprofen Allergy Intermediate RASH Verified 11/01/21 08:21 nickel Allergy Intermediate RASH Verified 11/01/21 08:21 NSAIDS (Non-Steroidal AdvReac Intermediate DISCOMFORT Verified 11/01/21 08:21 Anti-Inflamma IN ESOPHAGUS oxycodone [From OxyContin] AdvReac Mild Anxiety Verified 11/01/21 08:21 prednisone AdvReac Mild AGITATED Verified 11/01/21 08:21 AND UNCOMFORTABLE Home Medications Medication Instructions Recorded Confirmed Type ciclopirox 0.77 % topical cream 1 appln topical DAILY PRN ud 02/27/19 03/21/22 History sacubitril 24 mg-valsartan 26 mg 0.5 tab PO BID 08/26/19 03/21/22 History tablet (Entresto) eplerenone 25 mg tablet 12.5 mg PO 3XWK 09/07/20 03/21/22 History melatonin 5 mg tablet 5 mg PO HS PRN Sleep 09/07/20 03/21/22 History aspirin 81 mg tablet,delayed 81 mg PO QPM 02/22/21 03/21/22 History release (Adult Low Dose Aspirin) gabapentin 300 mg capsule 300 mg PO BID 02/22/21 03/21/22 History magnesium 200 mg tablet 200 mg PO QPM 02/22/21 03/21/22 History metoprolol succinate 25 mg 12.5 mg PO QAM 02/22/21 03/21/22 History tablet,extended release 24 hr B-complex with vitamin C (Super B 1 tab PO DAILY #30 tabs 03/16/21 03/21/22 Rx Complex-Vitamin C tablet) Naturelo Bone Strength 2 tab PO BID 03/16/21 03/21/22 History calcium-mag 2 tab PO QPM #30 tabs 03/16/21 03/21/22 Rx [id number]-boron-silica 200 mg-80 mg-80 unit-0.8 mg tablet tamsulosin 0.4 mg capsule See Rx Instructions .Route 01/16/22 03/21/22 Rx .COMPLEX #90 caps atorvastatin 10 mg tablet 10 mg PO DAILY 03/21/22 03/21/22 History Patient History Medical History Autonomic neuropathy CAD (coronary artery disease) Dilated cardiomyopathy follows with Dr. Blancas/Sebastian Duarte. PAK[place] GERD (gastroesophageal reflux disease) History of IBS History of skin cancer HLD (hyperlipidemia) HTN (hypertension) Hx of arteriovenous malformation (AVM) Peripheral neuropathy TMJ (temporomandibular joint disorder) Surgical History History of appendectomy History of cardiac catheterization History of cataract surgery (03/09/21) History of colonoscopy History of eye surgery History of knee replacement History of repair of rotator cuff History of surgery History of wisdom tooth extraction Family History Father Cardiac disorder Myocardial infarction Heart disease Mother Cardiac disorder Rheumatic fever Hypertension Family/Other Cardiac disorder Other No family history of adverse response to anesthesia Denies family history of Ovarian cancer Prostate cancer Diabetes Breast cancer Lung cancer Colorectal cancer Stroke Social History Smoking Status: Never smoker Second Hand Exposure: No; Hx Alcohol Use: No Hx Substance Use: No Preferred Language: Irish Communication Ability: Effective Visual Impairment: Limited Hearing Ability: Normal Automotive Electrician Required: No Beliefs That Will Affect Care: None marital status: Current Living Situation: Spouse current occupational status: employed How many Children do You have: 2 Feels Safe at Home: Yes Childhood Exposure to Second-Hand Smoke: Yes caffeine: Yes during the past year weight has: decreased > 10 lbs Dental Care, Regularly: Yes Physical Activity Frequency: Daily Seatbelt Use: always Sunscreen Use: No Assistive Devices: Glasses Review of Systems Review of Systems: All systems reviewed & are unremarkable except as noted in HPI & below Physical Exam Constitutional: WD/WN, vitals as above no acute distress Eyes: PERRL, conjunctivae normal, anicteric sclerae ENMT: external ear and nose normal, oropharynx normal Neck: trachea midline, no thyromegaly Respiratory: normal respiratory effort, lungs clear to auscultation Cardiovascular: Rate/Rhythm: + irregularly irregular Heart Sounds: no murmur Vessels: no JVD Extremities: no edema Chest (Breasts): Chest: normal inspection of chest Gastrointestinal (Abdomen): normal bowel sounds, soft, nontender, no hepatosplenomegaly Musculoskeletal: no cyanosis or clubbing, extremities motor strength 5/5 Results & Data ([facility]) Vital Signs (Past 12 Hours) Vital Signs Temp Pulse Pulse Resp BP BP Pulse Ox 03/21/22 13:09 68 18 90/55 L 98 03/21/22 11:21 101/63 03/21/22 11:21 62 16 03/21/22 11:00 52 L 16 03/21/22 10:12 54 L 18 03/21/22 10:12 113/63 03/21/22 10:00 60 20 03/21/22 09:03 81 20 03/21/22 08:00 78 15 99 03/21/22 07:57 77 19 100 03/21/22 11:23 68 16 101/63 94 03/21/22 09:04 89 L 03/21/22 08:24 89 21 98 03/21/22 08:03 83 21 102/60 98 03/21/22 08:03 94 03/21/22 08:03 36.5 C 83 21 102/60 93 O2 Del Method O2 Flow Rate 03/21/22 13:09 Room Air 03/21/22 11:21 03/21/22 11:21 03/21/22 11:00 03/21/22 10:12 03/21/22 10:12 03/21/22 10:00 03/21/22 09:03 03/21/22 08:00 03/21/22 07:57 03/21/22 11:23 03/21/22 09:04 Room Air 0 03/21/22 08:24 03/21/22 08:03 03/21/22 08:03 Room Air 03/21/22 08:03 Room Air Laboratory Results Laboratory Results - last 24 hr 03/21/22 03/21/22 03/21/22 08:38 08:38 08:38 WBC 3.15 L RBC 4.68 Hgb 9.5 L Hct 31.0 L MCV 66.2 L MCH 20.3 L MCHC 30.6 L RDW Std Deviation 37.2 RDW Coeff of Addi 16.0 H Plt Count 103 L MPV 11.3 Immature Gran % (Auto) 0.0 Neut % (Auto) 69.8 Lymph % (Auto) 19.4 [place] % (Auto) 7.3 Eos % (Auto) 2.2 Baso % (Auto) 1.3 Neut # (Auto) 2.20 Lymph # (Auto) 0.61 L [place] # (Auto) 0.23 L Eos # (Auto) 0.07 Baso # (Auto) 0.04 Immature Gran # (Auto) 0.00 Polychromasia 1+ Hypochromasia Present Microcytosis Present PT 13.5 H INR 1.3 H Sodium 145 Potassium 2.9 L Chloride 119 H Carbon Dioxide 22 Anion Gap 4 BUN 18 Creatinine 0.59 L Est Cr Clr Drug Dosing 102.3 Est GFR ( Amer) 110.0 Est GFR (Non-Af Amer) 94.9 BUN/Creatinine Ratio 30.5 H Glucose 100 H Calcium 6.3 L Magnesium 1.4 L Total Bilirubin 0.6 AST 15 ALT 18 Alkaline Phosphatase 29 L Troponin I High Sens 16.5 Total Protein 4.3 L Albumin 2.6 L Globulin 1.7 L Albumin/Globulin Ratio 1.5 TSH Urine Color Urine Appearance Urine pH Ur Specific [place] Urine Protein Urine Glucose (UA) Urine Ketones Urine Blood Urine Nitrite Urine Bilirubin Urine Urobilinogen Ur Leukocyte Esterase Urine WBC (Auto) Urine RBC (Auto) U Hyaline Cast (Auto) U Epithel Cells (Auto) Urine Bacteria (Auto) SARS-CoV-2, RNA, NAAT 03/21/22 03/21/22 03/21/22 08:38 10:13 11:52 WBC RBC Hgb Hct MCV MCH MCHC RDW Std Deviation RDW Coeff of Addi Plt Count MPV Immature Gran % (Auto) Neut % (Auto) Lymph % (Auto) [place] % (Auto) Eos % (Auto) Baso % (Auto) Neut # (Auto) Lymph # (Auto) [place] # (Auto) Eos # (Auto) Baso # (Auto) Immature Gran # (Auto) Polychromasia Hypochromasia Microcytosis PT INR Sodium Potassium Chloride Carbon Dioxide Anion Gap BUN Creatinine Est Cr Clr Drug Dosing Est GFR ( Amer) Est GFR (Non-Af Amer) BUN/Creatinine Ratio Glucose Calcium Magnesium Total Bilirubin AST ALT Alkaline Phosphatase Troponin I High Sens Total Protein Albumin Globulin Albumin/Globulin Ratio TSH 0.871 Urine Color Yellow Urine Appearance Clear Urine pH 8.0 H Ur Specific [place] 1.011 Urine Protein Negative Urine Glucose (UA) Negative Urine Ketones Trace H Urine Blood Negative Urine Nitrite Negative Urine Bilirubin Negative Urine Urobilinogen Negative Ur Leukocyte Esterase Trace H Urine WBC (Auto) 1-5 Urine RBC (Auto) 0-4 U Hyaline Cast (Auto) 1-5 U Epithel Cells (Auto) 10-20 H Urine Bacteria (Auto) Negative SARS-CoV-2, RNA, NAAT NEGATIVE 05/12/2021 TSH normal, magnesium 2.2 Diagnostic Findings Echocardiogram 04/26/2021 Compared to last available study changes are noted as follows: LV systolic function has normalized. Normal LV chamber size with mild concentric LVH. Normal LV systolic function without regional wall motion abnormality. Calculated LV ejection Fraction = 57% (bi-plane method of discs). Grade II diastolic dysfunction. Mild aortic valve sclerosis without stenosis. Mild mitral regurgitation. Mild tricuspid regurgitation. Severe left atrial enlargement
[2022-03-21] MEDS ORDERED: POTASSIUM CHLORIDE CRTAB 20 MEQ TABCR PO STA (13:44)
[2022-03-21] MEDS ORDERED: Heparin IV Adult Wt-Based Low-Dose WITH Bolus Protocol IV SCH (13:51)
[2022-03-21] MEDS ORDERED: HEPARIN SOD (PORCINE) 1000 UNIT/ML IV ONE ×2 (13:59→17:05)
[2022-03-21] MEDS ORDERED: HEPARIN SODIUM/DEXTROSE 25,000 UNITS/500 ML BAG IV SCH ×2 (14:00→17:15)
--- NOTE | 2022-03-21 14:14 | History & Physical Report ---
Date of Service March 21, 2022 Assessment & Plan (1) New onset atrial fibrillation: Plan: Presented with lightheadedness and hypotension in the setting of new onset atrial fibrillation with slow ventricular response He has a history of soft blood pressures and takes Entresto and metoprolol for his nonischemic cardiomyopathy With hypomagnesemia and hypokalemia noted on initial labs He received 1 L of normal saline in the ER as well as IV magnesium and IV potass ium replacement x20 mEq. Interestingly, his magnesium and potassium were completely normal after minimal replacement several hours later Question if this was lab error to begin with. Of note, patient did have his COVID booster on 03/17. Question if this contributed to development of atrial fibrillation in the setting of underlying LAE -Admit on observation to telemetry unit -Continue Toprol-XL 12.5 Mg p.o. once daily with hold parameters for history of cardiomyopathy -Appreciate cardiology consultation -Start heparin drip for now and convert to Eliquis if hemoglobin remains stable due to history of anemia with hemoglobin drop noted initially on CBC -Continue to follow BMP and magnesium and replace as needed (2) Hypotension: Plan: Interestingly developed hypotension in response to slow A. fib Has a history of autonomic neuropathy secondary to issues with large AVM in his past and multiple neurosurgical procedures Okay to continue low-dose Entresto and Toprol-XL as per cardiology with hold parameters Is also on tamsulosin which can contribute to orthostasis (3) Acute hypokalemia: Plan: As above, initially noted to be 2.9 and then corrected to 4.0 after only 20 mEq of KCl IV Question if lab error on initial labs Does take eplerenone 3 times a week Follow BMP and magnesium levels in the morning Replete to 4.0 as needed (4) Hypomagnesemia: Plan: As noted above, magnesium noted to be low at 1.4 on arrival and corrected to 2.2 after only receiving 1 g of IV magnesium-question lab error Follow levels and keep replete to 2.0 or greater in the setting of atrial fibrillation Continue home p.o. magnesium (5) Thalassemia minor: Plan: Baseline hemoglobin usually around 11, microcytic as expected Hemoglobin of 9.5 on arrival and no recent bleeding that he knows of Repeat CBC showed hemoglobin up to 13 and then repeat again to 12-most likely lab error on initial blood work Okay to start heparin drip Follow CBC Check iron studies, B12, folate Initially with thrombocytopenia to 100 which is new for him-check anaplasmosis smear which is negative, check B12 which is normal Repeat CBC a few hours later with normal platelets-was likely a lab error initially. Peripheral smear ordered (6) Nonischemic cardiomyopathy: Plan: Continue Entresto, Toprol-XL Daily weights, low-sodium diet, strict I's and O's EF most recently was normalized Follows with cardiology (7) BPH with obstruction/lower urinary tract symptoms: Plan: No acute issues Continue home tamsulosin (8) Cerebral AVM: Plan: History of such with repair in the past With associated neuropathy Continue gabapentin (9) Chronic GERD: Plan: No acute issues Not taking medication (10) Hyperlipidemia: Plan: Continue atorvastatin, aspirin (11) Non-occlusive coronary artery disease: Plan: No acute issues Continue aspirin, statin, metoprolol Plan DVT prophylaxis-heparin gtt Disposition-bring in on observation to telemetry unit, can likely discharge to home tomorrow if rates controlled and no further hypotension Full code History of Present Illness Chief Complaint: Lightheadedness Primary Care Provider: Bhavesh Gamboa MD This patient is an 81-year-old male with history of prior nonischemic cardiomyopathy with return to normal LV function, hyperlipidemia, nonobstructive CAD, remote closure of cerebral AVM, HTN, GERD, gastroparesis, chronic anemia from thalassemia minor, idiopathic peripheral neuropathy, chronic RBBB, and mitral regurgitation, who presents to the ER with acute onset of lightheadedness after he returned from going for his usual 3 mile daily walk. He took his blood pressure and was found to have a systolic blood pressure in the 60s but did not know what his pulse rate was at that time. He tried eating saltine crackers and then rechecked his blood pressure and it remained low. He remained symptomatic and appeared pale and he called 911. He did not actually pass out but came close. He did take his morning metoprolol and Entresto. He denies ever having chest pain or shortness of breath, no nausea or vomiting, no abdominal pains. In the ER, he was found to have newly diagnosed atrial fibrillation with rates in the 50s to 60s and a systolic blood pressure in the 90s. He was also found to have significant hypokalemia and hypomagnesemia. His hemoglobin was down from his baseline to 9.5 and his platelets were lower than usual at 103. LFTs were normal, blood sugar was normal, troponin normal at 16.5. TSH normal at 0.871. A chest x-ray was negative. ECG showed atrial fibrillation with RBBB and LAFB with rate of 85-the LAFB is new. Urinalysis was without infection and a COVID-19 test was negative. No recent bleeding, fever/chills. In the ER, he was given IV magnesium and IV as well as p.o. potassium and 1 L of normal saline. The ER physician spoke with the patient's personal data analytics architect, Dr. Blancas, who recommended admission for further evaluation. He will be admitted for hypotension, electrolyte abnormalities, and new onset atrial fibrillation. Allergies Allergy/AdvReac Type Severity Reaction Status Date / Time ibuprofen Allergy Intermediate RASH Verified 11/01/21 08:21 nickel Allergy Intermediate RASH Verified 11/01/21 08:21 NSAIDS (Non-Steroidal AdvReac Intermediate DISCOMFORT Verified 11/01/21 08:21 Anti-Inflamma IN ESOPHAGUS oxycodone [From OxyContin] AdvReac Mild Anxiety Verified 11/01/21 08:21 prednisone AdvReac Mild AGITATED Verified 11/01/21 08:21 AND UNCOMFORTABLE Home Medications Medication Instructions Recorded Confirmed Type ciclopirox 0.77 % topical cream 1 appln topical DAILY PRN ud 02/27/19 03/21/22 History sacubitril 24 mg-valsartan 26 mg 0.5 tab PO BID 08/26/19 03/21/22 History tablet (Entresto) eplerenone 25 mg tablet 12.5 mg PO 3XWK 09/07/20 03/21/22 History melatonin 5 mg tablet 5 mg PO HS PRN Sleep 09/07/20 03/21/22 History aspirin 81 mg tablet,delayed 81 mg PO QPM 02/22/21 03/21/22 History release (Adult Low Dose Aspirin) gabapentin 300 mg capsule 300 mg PO BID 02/22/21 03/21/22 History magnesium 200 mg tablet 200 mg PO QPM 02/22/21 03/21/22 History metoprolol succinate 25 mg 12.5 mg PO QAM 02/22/21 03/21/22 History tablet,extended release 24 hr B-complex with vitamin C (Super B 1 tab PO DAILY #30 tabs 09/22/21 09/27/22 Rx Complex-Vitamin C tablet) Naturelo Bone Strength 2 tab PO BID 03/16/21 03/21/22 History calcium-mag 2 tab PO QPM #30 tabs 03/16/21 03/21/22 Rx [id number]-boron-silica 200 mg-80 mg-80 unit-0.8 mg tablet tamsulosin 0.4 mg capsule See Rx Instructions .Route 01/16/22 03/21/22 Rx .COMPLEX #90 caps atorvastatin 10 mg tablet 10 mg PO DAILY 03/21/22 03/21/22 History Past Med/Surg History Medical History (Updated 03/22/22 @ 01:29 by Kiara Pineda MD) Autonomic neuropathy CAD (coronary artery disease) Dilated cardiomyopathy follows with Dr. Blancas/Sebastian Duarte. [place] GERD (gastroesophageal reflux disease) History of IBS History of skin cancer HLD (hyperlipidemia) HTN (hypertension) Hx of arteriovenous malformation (AVM) Peripheral neuropathy TMJ (temporomandibular joint disorder) Surgical History History of appendectomy History of cardiac catheterization 2 years ago while living in [place] - no stents History of cataract surgery (03/09/21) right History of colonoscopy History of eye surgery History of knee replacement Rt History of repair of rotator cuff Rt History of surgery cerebral AVM embolization History of wisdom tooth extraction Family History Father Cardiac disorder Myocardial infarction Heart disease Mother Cardiac disorder Rheumatic fever Hypertension Family/Other Cardiac disorder Other No family history of adverse response to anesthesia Denies family history of Ovarian cancer Prostate cancer Diabetes Breast cancer Lung cancer Colorectal cancer Stroke Social History Smoking Status: Never smoker Second Hand Exposure: No; Hx Alcohol Use: No Hx Substance Use: No Preferred Language: Irish Communication Ability: Effective Visual Impairment: Limited Hearing Ability: Normal Lead Shipper Required: No Beliefs That Will Affect Care: None marital status: Current Living Situation: Spouse current occupational status: employed How many Children do You have: 2 Feels Safe at Home: Yes Childhood Exposure to Second-Hand Smoke: Yes caffeine: Yes during the past year weight has: decreased > 10 lbs Dental Care, Regularly: Yes Physical Activity Frequency: Daily Seatbelt Use: always Sunscreen Use: No Assistive Devices: Glasses Review of Systems Review of Systems: All systems reviewed & are unremarkable except as noted in HPI & below Denies headaches, denies fevers or chills, no cough or cold symptoms, no shortness of breath, no urinary symptoms, no bleeding from anywhere Physical Exam Constitutional: WD/WN, vitals as above Eyes: PERRL, conjunctivae normal, anicteric sclerae ENMT: external ear and nose normal, oropharynx normal Neck: trachea midline, no thyromegaly Respiratory: normal respiratory effort, lungs clear to auscultation Cardiovascular: Rate/Rhythm: + bradycardic and + irregularly irregular Heart Sounds: no murmur Extremities: no edema Chest (Breasts): Chest: normal inspection of chest Gastrointestinal (Abdomen): normal bowel sounds, soft, nontender, no he patosplenomegaly Musculoskeletal: Extremities: extremities normal to inspection; no cyanosis and no clubbing Skin: no rashes, warm and dry Neurologic: moves all extremities and awake; no focal motor deficits Psychiatric: A+Ox3, euthymic affect Lymphatic: no lymphedema Results & Data Results & Data ([facility]) Vital Signs (Past 12 Hours) Vital Signs Temp Pulse Pulse Resp BP BP Pulse Ox 03/21/22 13:09 68 18 90/55 L 98 03/21/22 11:21 101/63 03/21/22 11:21 62 16 03/21/22 11:00 52 L 16 03/21/22 10:12 54 L 18 03/21/22 10:12 113/63 03/21/22 10:00 60 20 03/21/22 09:03 81 20 03/21/22 08:00 78 15 99 03/21/22 07:57 77 19 100 03/21/22 11:23 68 16 101/63 94 03/21/22 09:04 89 L 03/21/22 08:24 89 21 98 03/21/22 08:03 83 21 102/60 98 03/21/22 08:03 94 03/21/22 08:03 36.5 C 83 21 102/60 93 O2 Del Method O2 Flow Rate 03/21/22 13:09 Room Air 03/21/22 11:21 03/21/22 11:21 03/21/22 11:00 03/21/22 10:12 03/21/22 10:12 03/21/22 10:00 03/21/22 09:03 03/21/22 08:00 03/21/22 07:57 03/21/22 11:23 03/21/22 09:04 Room Air 0 03/21/22 08:24 03/21/22 08:03 03/21/22 08:03 Room Air 03/21/22 08:03 Room Air Laboratory Results Labs reviewed Diagnostic Findings Chest X-Ray 03/21/22 08:24 XR chest 1V portable CLINICAL HISTORY: hypotension, new onset atrial fibrillation COMPARISON STUDY: Chest radiograph July 12, 2017. FINDINGS: Lung volumes are normal. Lungs are clear. There is no pneumothorax or pleural effusion. Cardiac size is at the upper limits of normal. Mediastinal contours are normal. There is no evidence for pulmonary edema. IMPRESSION: No acute cardiopulmonary findings. ACT 112: Negative or not required by law. Electronically signed by: Jt Duckworth M.D. 03/21/2022 9:18 AM Code Status & VTE Plan Code Status Full code VTE Prophylaxis Plan VTE Prophylaxis will be ordered: Yes PG Care Time/CCT Total # of Minutes Spent Total Time Spent with Patient: Total time spent is greater than 50% in coordination of care (as documented) at patient's floor/unit and/or counseling patient: Coding Level of Care Code INT OBSERVATION CARE 70M LVL 3 Diagnoses New onset atrial fibrillation I48.91 Hypotension I95.9 Acute hypokalemia E87.6 Hypomagnesemia E83.42 Thalassemia minor D56.3 Nonischemic cardiomyopathy I42.8 BPH with obstruction/lower urinary tract symptoms N40.1; N13.8 Cerebral AVM Q28.2 Chronic GERD K21.9 Hyperlipidemia E78.2 Hyperlipidemia type: mixed hyperlipidemia Non-occlusive coronary artery disease I25.10 (1) Hyperlipidemia Hyperlipidemia type: mixed hyperlipidemia Qualified Code(s): E78.2 - Mixed hyperlipidemia
--- NOTE | 2022-03-21 14:41 | Emergency Department Note ---
Impression & Plan New onset atrial fibrillation, Hypomagnesemia, Acute hypokalemia ED Provider Note INFORMANT: Patient ED PROVIDER(S): Alejandro Hdez MD CHIEF COMPLAINT: Lightheadedness PLAN: Disposition: Admitted Condition: Good Outpatient prescription management: none Referral: None MEDICAL DECISION MAKING: Patient presented because of lightheadedness and he was found to have acute onset of atrial fibrillation. A work-up was initiated. He did respond well to saline to correct the hypotension. Patient had no ischemia noted on ECG. He was indeed in atrial fibrillation. Patient's CBC showed a mild pancytopenia. His potassium was significantly low at 2.9 and magnesium was low at 1.4. Chest x-ray and urinalysis were unremarkable. Patient was given IV magnesium and IV potassium. 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 Blancas. In light of his symptoms and electrolyte disturbance he recommended inpatient treatment. I did discuss this with the patient and family. They were in agreement. Consultation was made with the [facility] service. Patient was evaluated in the ER and admitted for further Triage Nursing notes reviewed and agree them. Vital Signs: reviewed and remarkable for borderline hypotension Differential diagnosis: Cardiac sources, infection, dehydration, metabolic abnormality, hypo/hyperglycemia, electrolyte disturbance, anemia, hypoxia, cardiac sources, intracerebral event, toxicologic, neurologic, as well as other pathologies. Diagnostics interpreted by me: ECG: Twelve-lead ECG reveals atrial fibrillation at 85 bpm. Right bundle branch block and left anterior fascicular block. No ST elevation or depression. No PVCs. Cardiac Monitoring: Cardiac monitoring ordered by me: The patient was placed on continuous cardiac monitoring and observed. It revealed atrial fibrillation at 68 bpm. Imaging studies: Chest x-ray. Findings: A chest x-ray was performed and revealed no pneumothorax, effusion, infiltrate, pulmonary edema, free air under the diaphragm, or wide mediastinum. Impression: No acute disease. HPI: The patient is a 81 year old male who presents to the Emergency Room with complaints of lightheaded and dizziness. This started just prior to arrival and is improved. The patient also notes the following associated symptoms, none. Patient states has been in good health all week. EMS was summoned and the patient was found to be in new onset A. fib. Patient had his blood pressure taken at home and it was 66/44.. The patient has been given normal saline 250 mL bolus for relieving factors. Current pain is rated as 0/10. No recent vomiting or diarrhea. Pt denies LOC, headache, fevers, chills, diaphoresis, visual changes, neck pain, chest pain, breathing difficulties, nausea, vomiting, abdominal pain, back pain, melena, hematochezia, urinary symptoms, numbness, weakness, lymphadenopathy, rash, or other complaints. ROS: See above HPI for pertinent positives & negatives. A total of 10 systems reviewed and were otherwise negative. PAST MEDICAL HISTORY:See Below , nonischemic cardiomyopathy PAST SURGICAL HISTORY:See Below, FAMILY HISTORY:See Below SOCIAL HISTORY:See Below, HOME MEDICATIONS:See Below ALLERGIES:See Below VITALS:See Below PHYSICAL EXAMINATION: GENERAL: Awake, alert, well-appearing, in no distress HENT: Normocephalic, atraumatic. Oropharynx unremarkable. EYES: Normal conjunctiva. Sclera non-icteric. NECK: Inspection normal. Non-tender. Supple. No nuchal rigidity. FROM. No masses. RESPIRATORY: Clear to auscultation. No wheezes. No rales. Normal respiratory effort. CARDIAC: Borderline tachycardic rate. Irregular rhythm. No murmurs. No rubs. Extremities warm and well perfused. Pulses equal. No JVD. GI: Soft, non-distended. No tenderness to palpation. No rebound or guarding. No masses. RECTAL: Deferred. MUSCULOSKELETAL: Atraumatic. Chest examination reveals no tenderness. The back is symmetrical on inspection without obvious abnormality. There is no CVA tenderness to palpation. No joint edema. LOWER EXTREMITIES: Calves are equal size bilaterally and non-tender. No edema. No discoloration. NEURO: Normal sensorium. No sensory or motor deficits noted. SKIN: No rash or jaundice noted. Alejandro Hdez MD Past Med/Surg History Medical History Autonomic neuropathy CAD (coronary artery disease) Dilated cardiomyopathy follows with Dr. Blancas/Sebastian Duarte. PAKanu GERD (gastroesophageal reflux disease) History of IBS History of skin cancer HLD (hyperlipidemia) HTN (hypertension) Hx of arteriovenous malformation (AVM) Peripheral neuropathy TMJ (temporomandibular joint disorder) Surgical History History of appendectomy History of cardiac catheterization History of cataract surgery (03/09/21) History of colonoscopy History of eye surgery History of knee replacement History of repair of rotator cuff History of surgery History of wisdom tooth extraction Family History Father Cardiac disorder Myocardial infarction Heart disease Mother Cardiac disorder Rheumatic fever Hypertension Family/Other Cardiac disorder Other No family history of adverse response to anesthesia Denies family history of Ovarian cancer Prostate cancer Diabetes Breast cancer Lung cancer Colorectal cancer Stroke Social History Smoking Status: Never smoker Second Hand Exposure: No; Hx Alcohol Use: No Hx Substance Use: No Preferred Language: Polish Communication Ability: Effective Visual Impairment: Limited Hearing Ability: Normal Media Supervisor Required: No Beliefs That Will Affect Care: None marital status: Current Living Situation: Spouse current occupational status: employed How many Children do You have: 2 Feels Safe at Home: Yes Childhood Exposure to Second-Hand Smoke: Yes caffeine: Yes during the past year weight has: decreased > 10 lbs Dental Care, Regularly: Yes Physical Activity Frequency: Daily Seatbelt Use: always Sunscreen Use: No Assistive Devices: Glasses Allergies Allergies Allergy/AdvReac Type Severity Reaction Status Date / Time ibuprofen Allergy Intermediate RASH Verified 11/01/21 08:21 nickel Allergy Intermediate RASH Verified 11/01/21 08:21 NSAIDS (Non-Steroidal AdvReac Intermediate DISCOMFORT Verified 11/01/21 08:21 Anti-Inflamma IN ESOPHAGUS oxycodone [From OxyContin] AdvReac Mild Anxiety Verified 11/01/21 08:21 prednisone AdvReac Mild AGITATED Verified 11/01/21 08:21 AND UNCOMFORTABLE Home Meds Home Medications Medication Instructions Recorded Confirmed ciclopirox 0.77 % topical cream 1 appln topical DAILY PRN ud 02/27/19 03/21/22 sacubitril 24 mg-valsartan 26 mg 0.5 tab PO BID 08/26/19 03/21/22 tablet (Entresto) eplerenone 25 mg tablet 12.5 mg PO 3XWK 09/07/20 03/21/22 melatonin 5 mg tablet 5 mg PO HS PRN Sleep 09/07/20 03/21/22 aspirin 81 mg tablet,delayed 81 mg PO QPM 02/22/21 03/21/22 release (Adult Low Dose Aspirin) gabapentin 300 mg capsule 300 mg PO BID 02/22/21 03/21/22 magnesium 200 mg tablet 200 mg PO QPM 02/22/21 03/21/22 metoprolol succinate 25 mg 12.5 mg PO QAM 02/22/21 03/21/22 tablet,extended release 24 hr Naturelo Bone Strength 2 tab PO BID 03/16/21 03/21/22 atorvastatin 10 mg tablet 10 mg PO DAILY 03/21/22 03/21/22 Previous Rx's Medication Instructions Recorded B-complex with vitamin C (Super B 1 tab PO DAILY #30 tabs 03/16/21 Complex-Vitamin C tablet) calcium-mag 2 tab PO QPM #30 tabs 03/16/21 ip-U3-kvvf-boron-silica 200 mg-80 mg-80 unit-0.8 mg tablet tamsulosin 0.4 mg capsule See Rx Instructions .Route 01/16/22 .COMPLEX #90 caps Results & Data (ED) Vital Signs Vital Signs - 24 hr 03/21/22 08:03 03/21/22 08:03 03/21/22 08:03 Temperature 36.5 C Temperature Source Oral Pulse Rate 83 Pulse Rate [Apical] 83 Pulse Rate from SpO2 Sensor Pulse Rhythm Regular Pulse Rhythm [Apical] Pulse Strength Normal Pulse Strength [Apical] Respiratory Rate 21 21 Respiratory Effort / Characteristics Non-Labored Respiratory Depth Normal Respiratory Pattern Regular Blood Pressure 102/60 Blood Pressure [Right Arm] 102/60 Blood Pressure Mean 74 Blood Pressure Mean [Right Arm] 74 Blood Pressure Position [Right Arm] Pulse Oximetry 93 94 98 Oxygen Delivery Method Room Air Room Air Oxygen Flow Rate Sepsis Recent Fever Within 48 Hours No Sepsis New/Unexplained Change in Mental Status N/A Sepsis Action Taken by Nursing No Action Required Oxygen Flow Rate - Titration Pulse Oximetry Post Tiitration 03/21/22 08:24 03/21/22 09:04 03/21/22 11:23 Temperature Temperature Source Pulse Rate 89 Pulse Rate [Apical] 68 Pulse Rate from SpO2 Sensor Pulse Rhythm Pulse Rhythm [Apical] Regular Pulse Strength Pulse Strength [Apical] Normal Respiratory Rate 21 16 Respiratory Effort / Characteristics Respiratory Depth Normal Respiratory Pattern Blood Pressure Blood Pressure [Right Arm] 101/63 Blood Pressure Mean Blood Pressure Mean [Right Arm] 75 Blood Pressure Position [Right Arm] Lying Pulse Oximetry 98 89 L 94 Oxygen Delivery Method Room Air Oxygen Flow Rate 0 Sepsis Recent Fever Within 48 Hours Sepsis New/Unexplained Change in Mental Status Sepsis Action Taken by Nursing Oxygen Flow Rate - Titration 2 Pulse Oximetry Post Tiitration 95 03/21/22 07:57 03/21/22 08:00 03/21/22 09:03 Temperature Temperature Source Pulse Rate 77 78 81 Pulse Rate [Apical] Pulse Rate from SpO2 Sensor 78 73 Pulse Rhythm Pulse Rhythm [Apical] Pulse Strength Pulse Strength [Apical] Respiratory Rate 19 15 20 Respiratory Effort / Characteristics Respiratory Depth Respiratory Pattern Blood Pressure Blood Pressure [Right Arm] Blood Pressure Mean Blood Pressure Mean [Right Arm] Blood Pressure Position [Right Arm] Pulse Oximetry 100 99 Oxygen Delivery Method Oxygen Flow Rate Sepsis Recent Fever Within 48 Hours Sepsis New/Unexplained Change in Mental Status Sepsis Action Taken by Nursing Oxygen Flow Rate - Titration Pulse Oximetry Post Tiitration 03/21/22 10:00 03/21/22 10:12 03/21/22 10:12 Temperature Temperature Source Pulse Rate 60 54 L Pulse Rate [Apical] Pulse Rate from SpO2 Sensor Pulse Rhythm Pulse Rhythm [Apical] Pulse Strength Pulse Strength [Apical] Respiratory Rate 20 18 Respiratory Effort / Characteristics Respiratory Depth Respiratory Pattern Blood Pressure 113/63 Blood Pressure [Right Arm] Blood Pressure Mean 79 Blood Pressure Mean [Right Arm] Blood Pressure Position [Right Arm] Pulse Oximetry Oxygen Delivery Method Oxygen Flow Rate Sepsis Recent Fever Within 48 Hours Sepsis New/Unexplained Change in Mental Status Sepsis Action Taken by Nursing Oxygen Flow Rate - Titration Pulse Oximetry Post Tiitration 03/21/22 11:00 03/21/22 11:21 03/21/22 11:21 Temperature Temperature Source Pulse Rate 52 L 62 Pulse Rate [Apical] Pulse Rate from SpO2 Sensor Pulse Rhythm Pulse Rhythm [Apical] Pulse Strength Pulse Strength [Apical] Respiratory Rate 16 16 Respiratory Effort / Characteristics Respiratory Depth Respiratory Pattern Blood Pressure 101/63 Blood Pressure [Right Arm] Blood Pressure Mean 75 Blood Pressure Mean [Right Arm] Blood Pressure Position [Right Arm] Pulse Oximetry Oxygen Delivery Method Oxygen Flow Rate Sepsis Recent Fever Within 48 Hours Sepsis New/Unexplained Change in Mental Status Sepsis Action Taken by Nursing Oxygen Flow Rate - Titration Pulse Oximetry Post Tiitration 03/21/22 13:09 Temperature Temperature Source Pulse Rate Pulse Rate [Apical] 68 Pulse Rate from SpO2 Sensor Pulse Rhythm Pulse Rhythm [Apical] Pulse Strength Pulse Strength [Apical] Respiratory Rate 18 Respiratory Effort / Characteristics Respiratory Depth Respiratory Pattern Blood Pressure Blood Pressure [Right Arm] 90/55 L Blood Pressure Mean Blood Pressure Mean [Right Arm] 66 Blood Pressure Position [Right Arm] Pulse Oximetry 98 Oxygen Delivery Method Room Air Oxygen Flow Rate Sepsis Recent Fever Within 48 Hours Sepsis New/Unexplained Change in Mental Status Sepsis Action Taken by Nursing Oxygen Flow Rate - Titration Pulse Oximetry Post Tiitration Laboratory Data Result diagrams: 03/21/22 08:38 03/21/22 08:38 Lab Results 03/21/22 03/21/22 03/21/22 Range/Units 08:38 08:38 08:38 WBC 3.15 L (4.8-10.8) K/ul RBC 4.68 (4.63-6.08) M/uL Hgb 9.5 L (14.0-18.0) g/dl Hct 31.0 L (40.1-51.0) % MCV 66.2 L (80.0-100.0) fL MCH 20.3 L (25.0-34.0) pg MCHC 30.6 L (32.0-36.0) g/dL RDW Std Deviation 37.2 (36.4-46.3) fL RDW Coeff of Addi 16.0 H (11.5-14.5) % Plt Count 103 L (130-400) K/uL MPV 11.3 (9.4-12.4) fL Immature Gran % (Auto) 0.0 % Neut % (Auto) 69.8 % Lymph % (Auto) 19.4 % [place] % (Auto) 7.3 % Eos % (Auto) 2.2 % Baso % (Auto) 1.3 % Neut # (Auto) 2.20 (1.4-6.5) K/uL Lymph # (Auto) 0.61 L (1.2-3.4) K/uL [place] # (Auto) 0.23 L (0.24-0.82) K/uL Eos # (Auto) 0.07 (0-0.50) K/uL Baso # (Auto) 0.04 (0-0.2) K/uL Immature Gran # (Auto) 0.00 (0.00-0.02) K/uL Polychromasia 1+ Hypochromasia Present Microcytosis Present PT 13.5 H (9.0-12.0) Seconds INR 1.3 H (0.9-1.1) Sodium 145 (136-145) mmol/L Potassium 2.9 L (3.5-5.1) mmol/L Chloride 119 H (98-107) mmol/L Carbon Dioxide 22 (21-32) mmol/L Anion Gap 4 (3-11) BUN 18 (6-23) mg/dl Creatinine 0.59 L (0.6-1.4) mg/dl Est Cr Clr Drug Dosing 102.3 ml/min Est GFR ( Amer) 110.0 ml/min Est GFR (Non-Af Amer) 94.9 ml/min BUN/Creatinine Ratio 30.5 H (10-20) Glucose 100 H (70-99(Fasting)) mg/dl Calcium 6.3 L (8.5-10.1) mg/dl Magnesium 1.4 L (1.7-2.4) mg/dl Total Bilirubin 0.6 (0.2-1.0) mg/dl AST 15 (13-39) U/L ALT 18 (7-52) U/L Alkaline Phosphatase 29 L (34-104) U/L Troponin I High Sens 16.5 (0-20) pg/ml Total Protein 4.3 L (6.0-8.3) gm/dl Albumin 2.6 L (3.4-5.0) gm/dl Globulin 1.7 L (2.5-4.0) gm/dl Albumin/Globulin Ratio 1.5 (0.9-2) TSH (0.300-4.500) uIu/ml Urine Color Urine Appearance (Clear) Urine pH (4.5-7.5) Ur Specific [place] (1.000-1.030) Urine Protein (Negative) Urine Glucose (UA) (Negative) Urine Ketones (Negative) Urine Blood (Negative) Urine Nitrite (Negative) Urine Bilirubin (Negative) Urine Urobilinogen (Negative) Ur Leukocyte Esterase (Negative) Urine WBC (Auto) (0-5) /hpf Urine RBC (Auto) (0-4) /hpf U Hyaline Cast (Auto) (0-5) /lpf U Epithel Cells (Auto) (0-5) /lpf Urine Bacteria (Auto) (Negative) SARS-CoV-2, RNA, NAAT (NEGATIVE) 03/21/22 03/21/22 03/21/22 Range/Units 08:38 10:13 11:52 WBC (4.8-10.8) K/ul RBC (4.63-6.08) M/uL Hgb (14.0-18.0) g/dl Hct (40.1-51.0) % MCV (80.0-100.0) fL MCH (25.0-34.0) pg MCHC (32.0-36.0) g/dL RDW Std Deviation (36.4-46.3) fL RDW Coeff of Addi (11.5-14.5) % Plt Count (130-400) K/uL MPV (9.4-12.4) fL Immature Gran % (Auto) % Neut % (Auto) % Lymph % (Auto) % [place] % (Auto) % Eos % (Auto) % Baso % (Auto) % Neut # (Auto) (1.4-6.5) K/uL Lymph # (Auto) (1.2-3.4) K/uL [place] # (Auto) (0.24-0.82) K/uL Eos # (Auto) (0-0.50) K/uL Baso # (Auto) (0-0.2) K/uL Immature Gran # (Auto) (0.00-0.02) K/uL Polychromasia Hypochromasia Microcytosis PT (9.0-12.0) Seconds INR (0.9-1.1) Sodium (136-145) mmol/L Potassium (3.5-5.1) mmol/L Chloride (98-107) mmol/L Carbon Dioxide (21-32) mmol/L Anion Gap (3-11) BUN (6-23) mg/dl Creatinine (0.6-1.4) mg/dl Est Cr Clr Drug Dosing ml/min Est GFR ( Amer) ml/min Est GFR (Non-Af Amer) ml/min BUN/Creatinine Ratio (10-20) Glucose (70-99(Fasting)) mg/dl Calcium (8.5-10.1) mg/dl Magnesium (1.7-2.4) mg/dl Total Bilirubin (0.2-1.0) mg/dl AST (13-39) U/L ALT (7-52) U/L Alkaline Phosphatase (34-104) U/L Troponin I High Sens (0-20) pg/ml Total Protein (6.0-8.3) gm/dl Albumin (3.4-5.0) gm/dl Globulin (2.5-4.0) gm/dl Albumin/Globulin Ratio (0.9-2) TSH 0.871 (0.300-4.500) uIu/ml Urine Color Yellow Urine Appearance Clear (Clear) Urine pH 8.0 H (4.5-7.5) Ur Specific [place] 1.011 (1.000-1.030) Urine Protein Negative (Negative) Urine Glucose (UA) Negative (Negative) Urine Ketones Trace H (Negative) Urine Blood Negative (Negative) Urine Nitrite Negative (Negative) Urine Bilirubin Negative (Negative) Urine Urobilinogen Negative (Negative) Ur Leukocyte Esterase Trace H (Negative) Urine WBC (Auto) 1-5 (0-5) /hpf Urine RBC (Auto) 0-4 (0-4) /hpf U Hyaline Cast (Auto) 1-5 (0-5) /lpf U Epithel Cells (Auto) 10-20 H (0-5) /lpf Urine Bacteria (Auto) Negative (Negative) SARS-CoV-2, RNA, NAAT NEGATIVE (NEGATIVE) Administered Medications Sodium Chloride (Nss 1000ml) 1,000 mls @ 125 mls/hr IV .Q8H KLARISSA Stop: 03/21/22 16:29 Last Admin: 03/21/22 08:40 Dose: 125 mls/hr Documented By: CHELSY Discontinued Medications Magnesium Sulfate/Dextrose (Magnesium Sulfate / D5w) 1 gm in 100 mls @ 100 mls/hr IV NOW STA Stop: 03/21/22 12:29 Last Infusion: 03/21/22 12:43 Dose: 0 mls/hr Documented By: Admin: 03/21/22 11:38 Dose: 100 mls/hr Documented By: MAHESH Potassium Chloride (K Aime / Wtr) 10 meq in 100 mls @ 100 mls/hr IV Q1H KLARISSA; Protocol Stop: 03/21/22 13:29 Last Admin: 03/21/22 14:15 Dose: 100 mls/hr Documented By: Infusion: 03/21/22 13:52 Dose: 100 mls/hr Documented By: Admin: 03/21/22 12:52 Dose: 100 mls/hr Documented By: DARIN Imaging Data Radiologist's Impression: Chest X-Ray 03/21/22 08:24 XR chest 1V portable CLINICAL HISTORY: hypotension, new onset atrial fibrillation COMPARISON STUDY: Chest radiograph July 12, 2017. FINDINGS: Lung volumes are normal. Lungs are clear. There is no pneumothorax or pleural effusion. Cardiac size is at the upper limits of normal. Mediastinal contours are normal. There is no evidence for pulmonary edema. IMPRESSION: No acute cardiopulmonary findings. ACT 112: Negative or not required by law. Electronically signed by: Jt Duckworth M.D. 03/21/2022 9:18 AM Discharge Plan Visit Data Chief Complaint: Hypotension Stated Complaint: DIAPHORETIC/TIRED ED Provider: Alejandro Hdez Discharge Problem: New onset atrial fibrillation, Hypomagnesemia, Acute hypokalemia Forms Stand Alone Forms: [facility] [employer] Prescriptions Prescriptions: No Action tamsulosin 0.4 mg capsule See Rx Instructions .ROUTE .COMPLEX Qty: 90 3RF Dose Instruction: TAKE 1 CAPSULE BY MOUTH EVERY DAY Rx Instructions: TAKE 1 CAPSULE BY MOUTH EVERY DAY Entresto 24-26 mg tablet 0.5 tab PO BID ciclopirox 0.77 % cream 1 appln topical DAILY PRN (Reason: ud) eplerenone 25 mg tablet 12.5 mg PO 3XWK melatonin 5 mg tablet 5 mg PO HS PRN (Reason: Sleep) Naturelo Bone Strength 2 tab PO BID B-complex with vitamin C [Super B Complex-Vitamin C] Tablet 1 tab PO DAILY Qty: 30 0RF calc-mag cd-A1-dmdc-boron-ino 200-80-80-0.8 ze-ip-ggun-mg tablet 2 tab PO QPM Qty: 30 0RF metoprolol succinate 25 mg Tablet Extended Release 24 Hr 12.5 mg PO QAM magnesium 200 mg Tablet 200 mg PO QPM aspirin [Adult Low Dose Aspirin] 81 mg tablet,delayed release (DR/EC) 81 mg PO QPM gabapentin 300 mg capsule 300 mg PO BID atorvastatin 10 mg tablet 10 mg PO DAILY Referrals Referrals: Bhavesh Gamboa MD [Primary Care Provider] -
[2022-03-21 16:00] LABS: Partial Thromboplastin Time 26.8 Seconds (21.0-31.0)
[2022-03-21 16:17] LABS: Iron 121 mcg/dl (35-175); Total Iron Binding Cap Calc 321 mcg/dl (250-450); Transferrin (FE) Percent Satur 38 % (20-50); Unsaturated Iron Binding Cap 200 mcg/dl (155-355)
[2022-03-21 16:28] LABS: BUN Creatinine Ratio 20.5 (10-20); Calcium 9.1 mg/dl (8.5-10.1); Creatinine Clr Calc Pharmacy 72.7 ml/min; Est GFR (African American) 95.6 ml/min; Est GFR (Non-African American) 82.5 ml/min; Magnesium 2.2 mg/dl (1.7-2.4)
[2022-03-21 16:31] LABS: Ferritin 76.8 ng/ml (8-388)
[2022-03-21] MEDS ORDERED: ONDANSETRON INJ 2 MG/ML 2 ML VIAL IV PRN (16:32)
[2022-03-21] MEDS ORDERED: ACETAMINOPHEN 325 MG TAB PO PRN (16:32)
[2022-03-21 16:35] LABS: Folate (Folic Acid) > 22.30 ng/ml (>5.38)
[2022-03-21 16:36] LABS: Vitamin B12 1479 pg/ml (180-914)
[2022-03-21 16:45] LABS: Hematocrit (blood only) 42.6 % (40.1-51.0); Hemoglobin 13.1 g/dl (14.0-18.0); Platelet Count 152 K/uL (130-400); White Blood Count 7.26 K/ul (4.8-10.8)
[2022-03-21] MEDS: MAGNESIUM SULFATE / D5W 1 GM/100 ML BAG IV SCH ×2 (16:46→19:58)
[2022-03-21 16:48] LABS: Mean Corpuscular Hemoglobin 20.2 pg (25.0-34.0); Mean Corpuscular Hgb Conc 30.8 g/dL (32.0-36.0); Mean Corpuscular Volume 65.8 fL (80.0-100.0); RDW Coefficient of Variation 18.1 % (11.5-14.5); RDW Standard Deviation 36.5 fL (36.4-46.3); Red Blood Count 6.47 M/uL (4.63-6.08)
[2022-03-21] MEDS ORDERED: Heparin IV Adult Wt-Based Standard WITH Bolus Protocol IV SCH (16:50)
[2022-03-21 16:55] LABS: Target Cells 1+
[2022-03-21] MEDS ORDERED: MELATONIN 3 MG TAB PO PRN (17:13)
[2022-03-21 17:16] LABS: Basophils # (auto) 0.06 K/uL (0-0.2); Basophils % (auto) 0.8 %; Eosinophils # (auto) 0.04 K/uL (0-0.50); Eosinophils % (auto) 0.6 %; Immature Granulocytes # (auto) 0.11 K/uL (0.00-0.02); Immature Granulocytes % (auto) 1.5 %; Lymphocytes # (auto) 0.98 K/uL (1.2-3.4); Lymphocytes % (auto) 13.5 %; Monocytes # (auto) 0.39 K/uL (0.24-0.82); Monocytes % (auto) 5.4 %; Neutrophils # (auto) 5.68 K/uL (1.4-6.5); Neutrophils % (auto) 78.2 %
[2022-03-21 20:19] LABS: Hemoglobin 12.1 g/dl (14.0-18.0); Mean Corpuscular Hemoglobin 20.3 pg (25.0-34.0); Mean Corpuscular Hgb Conc 31.8 g/dL (32.0-36.0); Mean Corpuscular Volume 63.7 fL (80.0-100.0); RDW Standard Deviation 35.4 fL (36.4-46.3); Red Blood Count 5.97 M/uL (4.63-6.08); White Blood Count 6.48 K/ul (4.8-10.8)
[2022-03-21 20:27] LABS: Platelet Count 154 K/uL (130-400)
[2022-03-21 20:33] LABS: INR 1.1 (0.9-1.1); Partial Thromboplastin Time 26.6 Seconds (21.0-31.0); Prothrombin Time 11.9 Seconds (9.0-12.0)
[2022-03-21 20:40] LABS: Basophils # (auto) 0.05 K/uL (0-0.2); Basophils % (auto) 0.8 %; Eosinophils # (auto) 0.08 K/uL (0-0.50); Eosinophils % (auto) 1.2 %; Immature Granulocytes # (auto) 0.02 K/uL (0.00-0.02); Immature Granulocytes % (auto) 0.3 %; Lymphocytes # (auto) 1.34 K/uL (1.2-3.4); Lymphocytes % (auto) 20.7 %; Monocytes # (auto) 0.57 K/uL (0.24-0.82); Monocytes % (auto) 8.8 %; Neutrophils # (auto) 4.42 K/uL (1.4-6.5); Neutrophils % (auto) 68.2 %; Ovalocytes 1+; Polychromasia 1+
[2022-03-21] MEDS: GABAPENTIN 300 MG CAP PO SCH (20:43)
[2022-03-21] MEDS: VALSARTAN/SACUBITRIL 26/24MG TAB PO SCH (20:45)
[2022-03-21] MEDS ORDERED: ASPIRIN 81 MG ECTAB PO SCH (21:00)
[2022-03-21] MEDS ORDERED: MAGNESIUM OXIDE 400 MG TAB PO SCH (21:00)
[2022-03-21] MEDS ORDERED: TAMSULOSIN HCL 0.4 MG CAP PO SCH (21:00)
--- NOTE | 2022-03-21 23:12 | Electrocardiogram Report ---
Test Reason : Blood Pressure : / mmHG Vent. Rate : 085 BPM Atrial Rate : 098 BPM P-R Int : 000 ms QRS Dur : 152 ms QT Int : 390 ms P-R-T Axes : 000 -66 072 degrees QTc Int : 464 ms Atrial fibrillation Right bundle branch block Left anterior fascicular block Bifascicular block Abnormal ECG When compared with ECG of 12-JUL-2017 15:40, Atrial fibrillation has replaced Sinus rhythm Left anterior fascicular block is now Present Confirmed by Gucci Pabon ([id number]) on 03/21/2022 11:12:27 PM Referred By: Confirmed By:Gucci Pabon
[2022-03-22 02:52] LABS: Hematocrit (blood only) 38.8 % (40.1-51.0); Hemoglobin 12.2 g/dl (14.0-18.0); Mean Corpuscular Hemoglobin 20.2 pg (25.0-34.0); Mean Corpuscular Hgb Conc 31.4 g/dL (32.0-36.0); Mean Corpuscular Volume 64.3 fL (80.0-100.0); RDW Coefficient of Variation 17.4 % (11.5-14.5); RDW Standard Deviation 36.1 fL (36.4-46.3); Red Blood Count 6.03 M/uL (4.63-6.08); White Blood Count 6.25 K/ul (4.8-10.8)
[2022-03-22 03:07] LABS: Mean Platelet Volume 11.5 fL (9.4-12.4); Platelet Count 135 K/uL (130-400)
[2022-03-22 03:11] LABS: Basophils # (auto) 0.05 K/uL (0-0.2); Basophils % (auto) 0.8 %; Eosinophils # (auto) 0.11 K/uL (0-0.50); Eosinophils % (auto) 1.8 %; Immature Granulocytes # (auto) 0.01 K/uL (0.00-0.02); Immature Granulocytes % (auto) 0.2 %; Lymphocytes % (auto) 30.4 %; Microcytosis Present; Monocytes # (auto) 0.47 K/uL (0.24-0.82); Monocytes % (auto) 7.5 %; Neutrophils # (auto) 3.71 K/uL (1.4-6.5); Neutrophils % (auto) 59.3 %; Ovalocytes 1+
[2022-03-22 03:17] LABS: BUN Creatinine Ratio 26.1 (10-20); Calcium 8.9 mg/dl (8.5-10.1); Creatinine Clr Calc Pharmacy 65.7 ml/min; Est GFR (African American) 90.1 ml/min; Est GFR (Non-African American) 77.7 ml/min; Magnesium 2.1 mg/dl (1.7-2.4); Potassium 4.1 mmol/L (3.5-5.1)
[2022-03-22 03:21] LABS: Partial Thromboplastin Time 111.3 Seconds (21.0-31.0)
[2022-03-22] MEDS ORDERED: ATORVASTATIN 10 MG TAB PO SCH (09:00)
[2022-03-22] MEDS ORDERED: VITAMIN B COMPLEX TAB PO SCH (09:00)
[2022-03-22] MEDS ORDERED: METOPROLOL SUCC 25MG EXT REL TAB PO SCH (09:00)
[2022-03-22] MEDS ORDERED: ASCORBIC ACID 500 MG TAB PO SCH (09:00)
[2022-03-22] MEDS: GABAPENTIN 300 MG CAP PO SCH (09:05)
[2022-03-22] MEDS: VALSARTAN/SACUBITRIL 26/24MG TAB PO SCH (09:07)
[2022-03-22] MEDS ORDERED: APIXABAN 5 MG TABLET PO ONE (11:00)
--- NOTE | 2022-03-22 11:01 | Cardiology Progress Note ---
Date of Service March 22, 2022 Assessment & Plan (1) New onset atrial fibrillation: (2) Nonischemic cardiomyopathy: (3) Non-occlusive coronary artery disease: Plan Patient is an 81-year-old male with prior nonischemic cardiomyopathy with return to normal LV function on guideline directed medical regimen including metoprolol succinate low-dose Entresto and atorvastatin who presents now with sudden onset acute dizziness and presyncope. Symptoms have resolved however he is still remains borderline hypotensive. Newly observed atrial fibrillation found on EKG though with bradycardic to normal ventricular response. No tachyarrhythmia Laboratory studies demonstrate significant metabolic derangement including hypokalemia hypomagnesemia. CBC demonstrates chronic thalassemia changes however with declining hemoglobin and platelet count I discussed atrial fibrillation in detail with patient including management and treatment. No overt tachyarrhythmias but bradycardia arrhythmias are a concern Impression/plan: 1. New onset atrial fibrillation with relatively bradycardic response. Patient was anticipated to have ultimately lapsed into this rhythm given atrial enlargement in past. Question tachybradycardia syndrome. Significant metabolic derangements noted including hypokalemia, hypomagnesemia We will continue low-dose Toprol 12.5 mg every morning as ordered. Maintain telemetry given symptomatic complaints of presyncope Supplement potassium and magnesium with repeat laboratory studies ordered today Optimally would anticoagulate with heparin until significant bradycardia arrhythmias excluded then initiate full anticoagulation long-term with DOAC. We will repeat CBC given declining hemoglobin and platelet count before initiating anticoagulation We will keep n.p.o. after midnight tonight 2. Hypotension and presyncope. Question secondary to arrhythmias versus alternate source. Echocardiogram will be repeated but past studies have demonstrated return to normal LV systolic function. No acute findings suggest ischemia and known mild coronary atherosclerosis by prior cardiac catheterization 3. Decreased hemoglobin and platelet count, repeat CBC to be ordered 03/22/2022: Patient without complaint this morning and atrial fibrillation generally controlled. No profound pauses or bradycardia arrhythmias and patient ambulatory. Discussed atrial fibrillation and management once again in detail. No indications for pacemaker at this time Plan: Will increase metoprolol succinate to 12.5 mg/day. Initiate anticoagulation with Eliquis 5 mg twice per day, all other medications as prior Office contacted him and will be arranging 7-day Zio patch monitor to exclude tachybradycardia concerns Appointment to follow being arranged Discussed findings in detail with patient will begin following heart rate and blood pressure closely at home report any tachy or bradycardia complaints with gradual increase in activity. Long-term management to be discussed at upcoming appointment and depending on heart rate response and symptoms adjusted Admission and Anticipated Discharge Date Admission Date: March 21, 2022 Subjective Patient was seen and examined, chart, medications, telemetry reviewed. No complaints overnight atrial fibrillation generally controlled with some increase in heart rate with activity this morning. No bradycardia arrhythmias or pauses. No difficulties with anticoagulation. Patient ambulatory in room and hallway without complaint Review of Systems Review of Systems: All systems reviewed & are unremarkable except as noted in Subjective Physical Exam Constitutional: WD/WN, vitals as above no acute distress Eyes: PERRL, conjunctivae normal, anicteric sclerae ENMT: external ear and nose normal, oropharynx normal Neck: trachea midline, no thyromegaly Respiratory: normal respiratory effort, lungs clear to auscultation Cardiovascular: Rate/Rhythm: + irregularly irregular Heart Sounds: no murmur Vessels: no JVD Extremities: no edema Chest (Breasts): Chest: normal inspection of chest Gastrointestinal (Abdomen): normal bowel sounds, soft, nontender, no hepato splenomegaly Musculoskeletal: no cyanosis or clubbing, extremities motor strength 5/5 Results & Data ([facility]) Vital Signs (Past 12 Hours) Vital Signs Temp Pulse Pulse Resp BP BP Pulse Ox 03/22/22 09:12 80 130/77 03/22/22 08:21 36.8 C 77 18 93/57 L 99 03/22/22 04:50 36.4 C L 77 18 94/59 L 94 03/22/22 00:31 36.8 C 75 16 91/61 L 95 03/22/22 00:00 68 O2 Del Method 03/22/22 09:12 03/22/22 08:21 Room Air 03/22/22 04:50 Room Air 03/22/22 00:31 Room Air 03/22/22 00:00 Laboratory Results Laboratory Results - last 24 hr 03/21/22 03/21/22 03/21/22 11:52 15:30 15:30 WBC Cancelled RBC Cancelled Hgb Cancelled Hct Cancelled MCV Cancelled MCH Cancelled MCHC Cancelled RDW Std Deviation Cancelled RDW Coeff of Addi Cancelled Plt Count Cancelled MPV Cancelled Immature Gran % (Auto) Cancelled Neut % (Auto) Cancelled Lymph % (Auto) Cancelled [place] % (Auto) Cancelled Eos % (Auto) Cancelled Baso % (Auto) Cancelled Neut # (Auto) Cancelled Lymph # (Auto) Cancelled [place] # (Auto) Cancelled Eos # (Auto) Cancelled Baso # (Auto) Cancelled Immature Gran # (Auto) Cancelled Absolute Nucleated RBC Cancelled Nucleated RBC % (auto) Cancelled Neutrophils % (Manual) Cancelled Band Neutrophils % Cancelled Lymphocytes % (Manual) Cancelled Prolymphocyte % Cancelled Reactive Lymphs % (Man) Cancelled Monocytes % (Manual) Cancelled Eosinophils % (Manual) Cancelled Basophils % (Manual) Cancelled Metamyelocytes % (Man) Cancelled Myelocytes % (Man) Cancelled Promyelocytes % (Man) Cancelled Blast Cells % (Manual) Cancelled Plasma Cell % (Manual) Cancelled Other Cells % Cancelled Nucleated RBC % Cancelled Neutrophils # (Manual) Cancelled Band Neutrophils # Cancelled Total Absolute Neuts Cancelled Lymphocytes # (Manual) Cancelled Prolymphocyte # Cancelled Reactive Lymphs # Cancelled Total Abs Lymphocytes Cancelled Monocytes # (Manual) Cancelled Eosinophils # (Manual) Cancelled Basophils # (Manual) Cancelled Metamyelocytes # (Man) Cancelled Myelocytes # (Manual) Cancelled Promyelocytes # (Man) Cancelled Blast Cells # (Man) Cancelled Plasma Cell # (Manual) Cancelled Other Cells # Cancelled Nucleated RBCs # (Man) Cancelled Hypersegmented Neuts Cancelled Hyposegmented Neuts Cancelled Hypogranular Neuts Cancelled Large Granular Lymphs Cancelled # Lrg Granular Lymphs Cancelled Hairy Cells Cancelled Smudge Cells Cancelled Toxic Granulation Cancelled Toxic Vacuolation Cancelled Dohle Bodies Cancelled Omi Rods Cancelled Platelet Estimate Cancelled Hypogranular Platelets Cancelled Clumped Platelets Cancelled Giant Platelets Cancelled Platelet Satelliting Cancelled RBC Morphology Cancelled Polychromasia Cancelled Hypochromasia Cancelled Poikilocytosis Cancelled Basophilic Stippling Cancelled Anisocytosis Cancelled Microcytosis Cancelled Macrocytosis Cancelled Spherocytes Cancelled Pappenheimer Bodies Cancelled Sickle Cells Cancelled Target Cells Cancelled Tear Drop Cells Cancelled Ovalocytes Cancelled Stomatocytes Cancelled Murphy-Yarnell Bodies Cancelled Echinocytes Cancelled Acanthocytes (Spur) Cancelled Rouleaux Cancelled RBC Agglutinates Cancelled Schistocytes Cancelled Peripher Smr Path Cons Sezary Cell Cancelled PT INR APTT PTT Ratio Sodium 140 Potassium 4.0 D Chloride 107 Carbon Dioxide 28 Anion Gap 5 BUN 17 Creatinine 0.83 Est Cr Clr Drug Dosing 72.7 Est GFR ( Amer) 95.6 Est GFR (Non-Af Amer) 82.5 BUN/Creatinine Ratio 20.5 H Glucose 142 H Calcium 9.1 D Magnesium 2.2 Iron TIBC Unsaturated IBC Transferrin % Sat Ferritin 76.8 Vitamin B12 Folate Anaplasma Smear SARS-CoV-2, RNA, NAAT NEGATIVE Blood Parasites ID Cancelled 03/21/22 03/21/22 03/21/22 15:30 15:30 15:30 WBC RBC Hgb Hct MCV MCH MCHC RDW Std Deviation RDW Coeff of Addi Plt Count MPV Immature Gran % (Auto) Neut % (Auto) Lymph % (Auto) [place] % (Auto) Eos % (Auto) Baso % (Auto) Neut # (Auto) Lymph # (Auto) [place] # (Auto) Eos # (Auto) Baso # (Auto) Immature Gran # (Auto) Absolute Nucleated RBC Nucleated RBC % (auto) Neutrophils % (Manual) Band Neutrophils % Lymphocytes % (Manual) Prolymphocyte % Reactive Lymphs % (Man) Monocytes % (Manual) Eosinophils % (Manual) Basophils % (Manual) Metamyelocytes % (Man) Myelocytes % (Man) Promyelocytes % (Man) Blast Cells % (Manual) Plasma Cell % (Manual) Other Cells % Nucleated RBC % Neutrophils # (Manual) Band Neutrophils # Total Absolute Neuts Lymphocytes # (Manual) Prolymphocyte # Reactive Lymphs # Total Abs Lymphocytes Monocytes # (Manual) Eosinophils # (Manual) Basophils # (Manual) Metamyelocytes # (Man) Myelocytes # (Manual) Promyelocytes # (Man) Blast Cells # (Man) Plasma Cell # (Manual) Other Cells # Nucleated RBCs # (Man) Hypersegmented Neuts Hyposegmented Neuts Hypogranular Neuts Large Granular Lymphs # Lrg Granular Lymphs Hairy Cells Smudge Cells Toxic Granulation Toxic Vacuolation Dohle Bodies Omi Rods Platelet Estimate Hypogranular Platelets Clumped Platelets Giant Platelets Platelet Satelliting RBC Morphology Polychromasia Hypochromasia Poikilocytosis Basophilic Stippling Anisocytosis Microcytosis Macrocytosis Spherocytes Pappenheimer Bodies Sickle Cells Target Cells Tear Drop Cells Ovalocytes Stomatocytes Murphy-Yarnell Bodies Echinocytes Acanthocytes (Spur) Rouleaux RBC Agglutinates Schistocytes Peripher Smr Path Cons Sezary Cell PT INR APTT 26.8 PTT Ratio 1.0 Sodium Potassium Chloride Carbon Dioxide Anion Gap BUN Creatinine Est Cr Clr Drug Dosing Est GFR ( Amer) Est GFR (Non-Af Amer) BUN/Creatinine Ratio Glucose Calcium Magnesium Iron 121 TIBC 321 Unsaturated IBC 200 Transferrin % Sat 38 Ferritin Vitamin B12 1479 H Folate > 22.30 Anaplasma Smear SARS-CoV-2, RNA, NAAT Blood Parasites ID 03/21/22 03/21/22 03/21/22 15:31 15:31 20:04 WBC 7.26 6.48 RBC 6.47 H 5.97 Hgb 13.1 L D 12.1 L Hct 42.6 38.0 L MCV 65.8 L 63.7 L MCH 20.2 L 20.3 L MCHC 30.8 L 31.8 L RDW Std Deviation 36.5 35.4 L RDW Coeff of Addi 18.1 H 17.0 H Plt Count 152 154 MPV Immature Gran % (Auto) 1.5 0.3 Neut % (Auto) 78.2 68.2 Lymph % (Auto) 13.5 20.7 [place] % (Auto) 5.4 8.8 Eos % (Auto) 0.6 1.2 Baso % (Auto) 0.8 0.8 Neut # (Auto) 5.68 4.42 Lymph # (Auto) 0.98 L 1.34 [place] # (Auto) 0.39 0.57 Eos # (Auto) 0.04 0.08 Baso # (Auto) 0.06 0.05 Immature Gran # (Auto) 0.11 H 0.02 Absolute Nucleated RBC Nucleated RBC % (auto) Neutrophils % (Manual) Band Neutrophils % Lymphocytes % (Manual) Prolymphocyte % Reactive Lymphs % (Man) Monocytes % (Manual) Eosinophils % (Manual) Basophils % (Manual) Metamyelocytes % (Man) Myelocytes % (Man) Promyelocytes % (Man) Blast Cells % (Manual) Plasma Cell % (Manual) Other Cells % Nucleated RBC % Neutrophils # (Manual) Band Neutrophils # Total Absolute Neuts Lymphocytes # (Manual) Prolymphocyte # Reactive Lymphs # Total Abs Lymphocytes Monocytes # (Manual) Eosinophils # (Manual) Basophils # (Manual) Metamyelocytes # (Man) Myelocytes # (Manual) Promyelocytes # (Man) Blast Cells # (Man) Plasma Cell # (Manual) Other Cells # Nucleated RBCs # (Man) Hypersegmented Neuts Hyposegmented Neuts Hypogranular Neuts Large Granular Lymphs # Lrg Granular Lymphs Hairy Cells Smudge Cells Toxic Granulation Toxic Vacuolation Dohle Bodies Omi Rods Platelet Estimate Hypogranular Platelets Clumped Platelets Giant Platelets Platelet Satelliting RBC Morphology Polychromasia 1+ Hypochromasia Poikilocytosis Basophilic Stippling Anisocytosis Microcytosis Macrocytosis Spherocytes Pappenheimer Bodies Sickle Cells Target Cells 1+ Tear Drop Cells Ovalocytes 1+ Stomatocytes Murphy-Yarnell Bodies Echinocytes Acanthocytes (Spur) Rouleaux RBC Agglutinates Schistocytes Peripher Smr Path Cons Cancelled Sezary Cell PT INR APTT PTT Ratio Sodium Potassium Chloride Carbon Dioxide Anion Gap BUN Creatinine Est Cr Clr Drug Dosing Est GFR ( Amer) Est GFR (Non-Af Amer) BUN/Creatinine Ratio Glucose Calcium Magnesium Iron TIBC Unsaturated IBC Transferrin % Sat Ferritin Vitamin B12 Folate Anaplasma Smear See Comment SARS-CoV-2, RNA, NAAT Blood Parasites ID 03/21/22 03/22/22 03/22/22 20:04 02:37 02:37 WBC 6.25 RBC 6.03 Hgb 12.2 L Hct 38.8 L MCV 64.3 L MCH 20.2 L MCHC 31.4 L RDW Std Deviation 36.1 L RDW Coeff of Addi 17.4 H Plt Count 135 MPV 11.5 Immature Gran % (Auto) 0.2 Neut % (Auto) 59.3 Lymph % (Auto) 30.4 [place] % (Auto) 7.5 Eos % (Auto) 1.8 Baso % (Auto) 0.8 Neut # (Auto) 3.71 Lymph # (Auto) 1.90 [place] # (Auto) 0.47 Eos # (Auto) 0.11 Baso # (Auto) 0.05 Immature Gran # (Auto) 0.01 Absolute Nucleated RBC Nucleated RBC % (auto) Neutrophils % (Manual) Band Neutrophils % Lymphocytes % (Manual) Prolymphocyte % Reactive Lymphs % (Man) Monocytes % (Manual) Eosinophils % (Manual) Basophils % (Manual) Metamyelocytes % (Man) Myelocytes % (Man) Promyelocytes % (Man) Blast Cells % (Manual) Plasma Cell % (Manual) Other Cells % Nucleated RBC % Neutrophils # (Manual) Band Neutrophils # Total Absolute Neuts Lymphocytes # (Manual) Prolymphocyte # Reactive Lymphs # Total Abs Lymphocytes Monocytes # (Manual) Eosinophils # (Manual) Basophils # (Manual) Metamyelocytes # (Man) Myelocytes # (Manual) Promyelocytes # (Man) Blast Cells # (Man) Plasma Cell # (Manual) Other Cells # Nucleated RBCs # (Man) Hypersegmented Neuts Hyposegmented Neuts Hypogranular Neuts Large Granular Lymphs # Lrg Granular Lymphs Hairy Cells Smudge Cells Toxic Granulation Toxic Vacuolation Dohle Bodies Omi Rods Platelet Estimate Hypogranular Platelets Clumped Platelets Giant Platelets Platelet Satelliting RBC Morphology Polychromasia Hypochromasia Poikilocytosis Basophilic Stippling Anisocytosis Microcytosis Present Macrocytosis Spherocytes Pappenheimer Bodies Sickle Cells Target Cells Tear Drop Cells Ovalocytes 1+ Stomatocytes Murphy-Yarnell Bodies Echinocytes Acanthocytes (Spur) Rouleaux RBC Agglutinates Schistocytes Peripher Smr Path Cons Sezary Cell PT 11.9 INR 1.1 APTT 26.6 PTT Ratio 1.0 Sodium 143 Potassium 4.1 Chloride 111 H Carbon Dioxide 28 Anion Gap 4 BUN 24 H Creatinine 0.92 Est Cr Clr Drug Dosing 65.7 Est GFR ( Amer) 90.1 Est GFR (Non-Af Amer) 77.7 BUN/Creatinine Ratio 26.1 H Glucose 94 Calcium 8.9 Magnesium 2.1 Iron TIBC Unsaturated IBC Transferrin % Sat Ferritin Vitamin B12 Folate Anaplasma Smear SARS-CoV-2, RNA, NAAT Blood Parasites ID 03/22/22 02:37 WBC RBC Hgb Hct MCV MCH MCHC RDW Std Deviation RDW Coeff of Addi Plt Count MPV Immature Gran % (Auto) Neut % (Auto) Lymph % (Auto) [place] % (Auto) Eos % (Auto) Baso % (Auto) Neut # (Auto) Lymph # (Auto) [place] # (Auto) Eos # (Auto) Baso # (Auto) Immature Gran # (Auto) Absolute Nucleated RBC Nucleated RBC % (auto) Neutrophils % (Manual) Band Neutrophils % Lymphocytes % (Manual) Prolymphocyte % Reactive Lymphs % (Man) Monocytes % (Manual) Eosinophils % (Manual) Basophils % (Manual) Metamyelocytes % (Man) Myelocytes % (Man) Promyelocytes % (Man) Blast Cells % (Manual) Plasma Cell % (Manual) Other Cells % Nucleated RBC % Neutrophils # (Manual) Band Neutrophils # Total Absolute Neuts Lymphocytes # (Manual) Prolymphocyte # Reactive Lymphs # Total Abs Lymphocytes Monocytes # (Manual) Eosinophils # (Manual) Basophils # (Manual) Metamyelocytes # (Man) Myelocytes # (Manual) Promyelocytes # (Man) Blast Cells # (Man) Plasma Cell # (Manual) Other Cells # Nucleated RBCs # (Man) Hypersegmented Neuts Hyposegmented Neuts Hypogranular Neuts Large Granular Lymphs # Lrg Granular Lymphs Hairy Cells Smudge Cells Toxic Granulation Toxic Vacuolation Dohle Bodies Omi Rods Platelet Estimate Hypogranular Platelets Clumped Platelets Giant Platelets Platelet Satelliting RBC Morphology Polychromasia Hypochromasia Poikilocytosis Basophilic Stippling Anisocytosis Microcytosis Macrocytosis Spherocytes Pappenheimer Bodies Sickle Cells Target Cells Tear Drop Cells Ovalocytes Stomatocytes Murphy-Yarnell Bodies Echinocytes Acanthocytes (Spur) Rouleaux RBC Agglutinates Schistocytes Peripher Smr Path Cons Sezary Cell PT INR APTT 111.3 H* PTT Ratio 4.0 Sodium Potassium Chloride Carbon Dioxide Anion Gap BUN Creatinine Est Cr Clr Drug Dosing Est GFR ( Amer) Est GFR (Non-Af Amer) BUN/Creatinine Ratio Glucose Calcium Magnesium Iron TIBC Unsaturated IBC Transferrin % Sat Ferritin Vitamin B12 Folate Anaplasma Smear SARS-CoV-2, RNA, NAAT Blood Parasites ID
--- NOTE | 2022-03-22 11:14 | Discharge Summary ---
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 He took his blood pressure and was found to have a systolic blood pressure in the 60s but did not know what his pulse rate was at that time. He tried eating saltine crackers and then rechecked his blood pressure and it remained low. He remained symptomatic and appeared pale and he called 911. He did not actually pass out but came close. He did take his morning metoprolol and Entresto. He denies ever having chest pain or shortness of breath, no nausea or vomiting, no abdominal pains. In the ER, he was found to have newly diagnosed atrial fibrillation with rates in the 50s to 60s and a systolic blood pressure in the 90s. He was also found to have significant hypokalemia and hypomagnesemia. His hemoglobin was down from his baseline to 9.5 and his platelets were lower than usual at 103. LFTs were normal, blood sugar was normal, troponin normal at 16.5. TSH normal at 0.871. A chest x-ray was negative. ECG showed atrial fibrillation with RBBB and LAFB with rate of 85-the LAFB is new. Urinalysis was without infection and a COVID-19 test was negative. No recent bleeding, fever/chills. In the ER, he was given IV magnesium and IV as well as p.o. potassium and 1 L of normal saline. The ER physician spoke with the patient's personal freelance interpreter/translator, Dr. Blancas, who recommended admission for further evaluation. He will be admitted for hypotension, electrolyte abnormalities, and new onset atrial fibrillation. Principal Diagnosis 1. New onset afib 2. Electrolyte abnormalities- suspect lab error 3. Hypotension-resolved Discharge Exam GENERAL: 81 yo Well-developed, well-nourished WM. NAD. LUNGS: Clear to auscultation bilaterally. No W/R/R. CARDIOVASCULAR: S1 S2 irregular ABDOMEN: Soft, non-tender and non-distended. BS normoactive x 4 quad. EXTREMITIES: No edema. Non-tender. Peripheral pulses +2/4. NEUROLOGIC: A&O x3. Nonfocal PSYCHIATRIC: Cooperative. Appropriate mood and affect. SKIN: Warm, dry, intact. No rashes or lesions. Discharge Data Allergies Allergy/AdvReac Type Severity Reaction Status Date / Time ibuprofen Allergy Intermediate RASH Verified 11/01/21 08:21 nickel Allergy Intermediate RASH Verified 11/01/21 08:21 NSAIDS (Non-Steroidal AdvReac Intermediate DISCOMFORT Verified 11/01/21 08:21 Anti-Inflamma IN ESOPHAGUS oxycodone [From OxyContin] AdvReac Mild Anxiety Verified 11/01/21 08:21 prednisone AdvReac Mild AGITATED Verified 11/01/21 08:21 AND UNCOMFORTABLE Consultations 03/21/22 12:49 ED Decision to Admit Stat 03/21/22 16:32 Consult Cardiology Routine Ordered Studies Chest X-Ray 03/21/22 08:24 XR chest 1V portable CLINICAL HISTORY: hypotension, new onset atrial fibrillation COMPARISON STUDY: Chest radiograph July 12, 2017. FINDINGS: Lung volumes are normal. Lungs are clear. There is no pneumothorax or pleural effusion. Cardiac size is at the upper limits of normal. Mediastinal contours are normal. There is no evidence for pulmonary edema. IMPRESSION: No acute cardiopulmonary findings. ACT 112: Negative or not required by law. Electronically signed by: Jt Duckworth M.D. 03/21/2022 9:18 AM 03/22/22 02:37 03/22/22 02:37 Hospital Course (1) New onset atrial fibrillation: Presented with lightheadedness and hypotension in the setting of new onset atrial fibrillation with slow ventricular response He has a history of soft blood pressures and takes Entresto and metoprolol for his nonischemic cardiomyopathy With hypomagnesemia and hypokalemia noted on initial labs He received 1 L of normal saline in the ER as well as IV magnesium and IV potassium replacement x20 mEq. Interestingly, his magnesium and potassium were completely normal after minimal replacement several hours later Question if this was lab error to begin with. Of note, patient did have his COVID booster on 03/17. Question if this contributed to development of atrial fibrillation in the setting of underlying LAE - Placed in observation to monitored bed - Continued Toprol-XL 12.5 Mg p.o. once daily with hold parameters for history of cardiomyopathy - Appreciate cardiology consultation, recommends uptitration of Toprol XL 12.5mg to BID - Started heparin drip initially but will transition to Eliquis upon discharge, first dose this AM before d/c (2) Hypotension: - Interestingly developed hypotension in response to slow A. fib - Has a history of autonomic neuropathy secondary to issues with large AVM in his past and multiple neurosurgical procedures - Okay to continue low-dose Entresto and Toprol-XL as per cardiology with hold parameters - Is also on tamsulosin which can contribute to orthostasis - BP improved this AM to 130/77 therefore should tolerate increased Toprol dose - No c/o dizziness/lightheadedness (3) Acute hypokalemia: As above, initially noted to be 2.9 and then corrected to 4.0 after only 20 mEq of KCl IV Question if lab error on initial labs Does take eplerenone 3 times a week Follow BMP and magnesium levels in the morning Replete to 4.0 as needed (4) Hypomagnesemia: - As noted above, magnesium noted to be low at 1.4 on arrival and corrected to 2.2 after only receiving 1 g of IV magnesium-question lab error - Follow levels and keep replete to 2.0 or greater in the setting of atrial fibrillation - Continue home p.o. magnesium (5) Thalassemia minor: - Baseline hemoglobin usually around 11, microcytic as expected - Hemoglobin of 9.5 on arrival and no recent bleeding that he knows of - Repeat CBC showed hemoglobin up to 13 and then repeat again to 12-most likely lab error on initial blood work - Okay to start heparin drip - Follow CBC which has been stable since starting gtt - Check iron studies, B12, folate Initially with thrombocytopenia to 100 which is new for him-check anaplasmosis smear which is negative, check B12 which is normal Repeat CBC a few hours later with normal platelets-was likely a lab error initially. Peripheral smear ordered and pending. PCP can f/u with this. (6) Nonischemic cardiomyopathy: - Continue Entresto, Toprol-XL - Daily weights, low-sodium diet, strict I's and O's - EF most recently was normalized Follows with cardiology (7) BPH with obstruction/lower urinary tract symptoms: - No acute issues - Continue home tamsulosin (8) Cerebral AVM: - History of such with repair in the past - With associated neuropathy - Continue gabapentin (9) Chronic GERD: No acute issues Not taking medication (10) Hyperlipidemia: Continue atorvastatin, aspirin (11) Non-occlusive coronary artery disease: No acute issues Continue aspirin, statin, metoprolol Plan Transition to Eliquis starting this morning and increased Toprol as outlined above. Discussed case with Dr. Blancas from cardiology, who will arrange for placement of a patch as outpatient to monitor for tachy/pieter syndrome. He will contact patient with follow up information. He has been also instructed to f/u with his pcp within 1 week of discharge. Pt is medically and hemodynamically stable for discharge home today. Plan of care has been d/w Dr. Braxton who is also in agreement with aforementioned plan. Total Time Total Time Spent Total Time Spent (In Minutes): <30 minutes Discharge Plan Discharge Items Patient Disposition: Home - Self-Care Reason For Visit: HYPOTENSION, NEW ONSET AFIB Discharge Diagnosis: new onset atrial fibrillation (irregular heart rhythm) Activity: Resume your previous activity Non-emergency contact: Primary Care Provider and Type Casting Machine Operator Call non-emergency contact if: you have any medication questions Follow-up/Referrals: Bhavesh Gamboa MD [Primary Care Provider] - Diet: Heart Healthy Addtl Attending Provider Instructions: You were hospitalized due to a new onset of an irregular heart rhythm called atr ial fibrillation. This rhythm places you at an increased risk of stroke when you are in it, therefore you were started initially on a blood thinner through your IV called Heparin. You were also noted to have some irregularities with your electrolytes for which you were given supplementation and your electrolytes this morning are normal. Your blood counts have not dropped since starting the blood thinner so you will be converted to pill form called Eliquis. This medication will need to be taken twice a day, once in the morning and once at night. Please do not skip doses or stop taking without otherwise being instructed to do so by your freelance interpreter/translator. Lastly, to better control your heart rate, your dose of Metoprolol is being increased from 12.5mg once a day to twice a day, once in the morning and once in the evening. Both of these prescriptions have been sent to your pharmacy. Dr. Blancas will arrange for you to follow up in his office upon discharge from the hospital. It is also recommended that you follow up with your family doctor within 1 week of discharge. If you have any questions following your discharge, you may call the nonemergency number listed on your paperwork. In the event of a medical emergency, call 911. Pending Studies at Discharge: No Stand-Alone Forms: My [facility], Smoking Cessation Medications and DC Order Prescriptions: New Eliquis 5 mg tablet 5 mg PO BID Qty: 60 0RF Continued tamsulosin 0.4 mg capsule See Rx Instructions .ROUTE .COMPLEX Qty: 90 3RF Dose Instruction: TAKE 1 CAPSULE BY MOUTH EVERY DAY Rx Instructions: TAKE 1 CAPSULE BY MOUTH EVERY DAY Entresto 24-26 mg tablet 0.5 tab PO BID ciclopirox 0.77 % cream 1 appln topical DAILY PRN (Reason: ud) eplerenone 25 mg tablet 12.5 mg PO 3XWK melatonin 5 mg tablet 5 mg PO HS PRN (Reason: Sleep) Naturelo Bone Strength 2 tab PO BID B-complex with vitamin C [Super B Complex-Vitamin C] Tablet 1 tab PO DAILY Qty: 30 0RF calc-mag [id number]-ino 200-80-80-0.8 wd-mh-syup-mg tablet 2 tab PO QPM Qty: 30 0RF magnesium 200 mg Tablet 200 mg PO QPM aspirin [Adult Low Dose Aspirin] 81 mg tablet,delayed release (DR/EC) 81 mg PO QPM gabapentin 300 mg capsule 300 mg PO BID atorvastatin 10 mg tablet 10 mg PO DAILY Changed metoprolol succinate 25 mg Tablet Extended Release 24 Hr 12.5 mg PO BID Qty: 30 1RF Discharge Orders: Discharge Order (Routine); Ordered 03/22/22 Ordered By: Cass Herbert Admission Data Admit Date/Time: 03/21/22 14:56 Attending Provider: Craig Braxton Admit Provider: Kiara Pineda Primary Care Provider: Bhavesh Gamboa Other Providers: Kiara Pineda ; Mickey Blancas Coding Level of Care Code 18343 OBS Care - Discharge Diagnoses New onset atrial fibrillation I48.91 Hypotension I95.9 Acute hypokalemia E87.6 Hypomagnesemia E83.42 Thalassemia minor D56.3 Nonischemic cardiomyopathy I42.8 BPH with obstruction/lower urinary tract symptoms N40.1; N13.8 Cerebral AVM Q28.2 Chronic GERD K21.9 Hyperlipidemia E78.2 Hyperlipidemia type: mixed hyperlipidemia Non-occlusive coronary artery disease I25.10
[2022-03-22] MEDS ORDERED: APIXABAN 5 MG TABLET PO SCH (21:00)
== END 2022-03-22 11:46 | disposition home or self-care (01) ==
LOC: ED 07:47 → 4W 07:47 → SUATTDRO 14:56 → 4W 15:54